=== PATIENT | female | born 1950 | race Caucasian/White ===

== ENCOUNTER → 2017-10-01 | Day surgery (SDC) | payer MEDICARE, BC ==
[2017-09-25 15:18] LABS: BASOPHILS # (AUTO) 0.1 (0.0-0.1); BASOPHILS % 0.4 % (0.0-1.0); EOSINOPHILS # (AUTO) 0.2 (0.0-0.4); EOSINOPHILS % 1.1 % (0.0-6.0); HEMATOCRIT 28.8 % (34.2-44.1); HEMOGLOBIN 9.1 g/dL (12.0-16.0); LYMPHOCYTES # (AUTO) 4.3 (1.0-3.2); LYMPHOCYTES % 24.9 % (18.0-39.1); MEAN CORPUSCULAR HGB CONC 31.6 g/dL (31-35); MEAN CORPUSCULAR VOLUME 91.7 fL (81-99); MONOCYTES # (AUTO) 1.6 (0.2-0.8); MONOCYTES % 9.5 % (4.4-11.3); NEUTROPHILS # (AUTO) 10.6 (2.1-6.9); NEUTROPHILS % 62.1 % (38.7-80.0); PLATELET COUNT 192 x10e3/uL (140-360); RED BLOOD COUNT 3.14 x10e6/uL (3.6-5.1)
[2017-09-25 16:49] LABS: HYPOCHROMASIA MODERATE; LYMPHOCYTES % (MANUAL) 12 % (19-48); MONOCYTES % (MANUAL) 9 % (3.4-9.0); NEUTROPHILS % (MANUAL) 78 % (40-74); NUCLEATED RED BLOOD CELLS 2; POIKILOCYTOSIS SLIGHT; RBC MORPHOLOGY COMMENT NORMAL
[2017-09-25 16:50] LABS: PLATELET ESTIMATE ADEQUATE; PLATELET MORPHOLOGY COMMENT MODERATE LARGE
[~2017-10-01] MED LIST: AGRYLIN0.5 M1 PO; AMLODIPINE BESYL5 MG PO; AMLODIPINE-BEN1 EAC1 PO; ARANESP; ASPIRIN81 MG PO; ATORVASTATIN CA10 MG PO; BENAZEPRIL HCL10 MG PO; BIOTIN PLUS-CA1 EACH PO; BIOTIN2500 MCG PO; BISOPROLOL-HCT1 EAC1 PO; BISOPROLOL-HCT1 EACH PO; CALCIUM 1,0001 EACH PO; CITRUCEL PO; CLONIDINE HCL0.2 MG PO; COQ-10100 MG PO; CRESTOR5 MG PO; EFFEXOR XR150 MG PO; FENTANYL CITRATE/PF 100MCG/2 ML INJ ONE; FERROUS SULFATE PO; FISH OIL 1,2001 EAC1 PO; LUTEIN10 MG PO; MIDAZOLAM HCL 2 MG/2 ML VIAL ONE; PROPOFOL IV EMULSION 10 MG/ML 50 ML VIAL ONE; SODIUM BICARB PO; SODIUM BICARBO650 MG PO; SYNTHROID100 MCG PO; VITAMIN C500 MG PO
--- OUTSIDE RECORDS SUMMARY | 2017-10-01 06:29 | XMS REPORT | Clinical Summary ---
Author Author KARTHIKEYAN [facility] Address Unknown Phone Unavailable Care Team Providers Care Manager Hospitality Name Role Phone PCP Unavailable Allergies Active Allergy Reactions Severity Noted Date Comments Sulfamethoxazole-Trimetho 10/12/2014 prim Codeine 10/12/2014 Dicyclomine 11/12/2014 Lidocaine 10/12/2014 Penicillins 10/12/2014 Current Medications Prescription Sig. Disp. Refills Start End Date Status Date darbepoetin Inject 300 mcg Active stalin-polysorbate subcutaneously once a (ARANESP) 100 mcg/0.5 mL week. Syrg injection anagrelide (AGRYLIN) 1 MG Take 1 mg by mouth 2 Active capsule (two) times daily. benazepril (LOTENSIN) 20 Take 5 mg by mouth daily Active MG tablet . amLODIPine (NORVASC) 5 MG Take 5 mg by mouth daily. Active tablet cloNIDine HCl (CATAPRES) Take 0.2 mg by mouth 2 Active 0.2 MG tablet (two) times daily. sodium bicarbonate 325 MG Take 650 mg by mouth 4 Active tablet (four) times daily. levothyroxine (SYNTHROID, Take 100 mcg by mouth Active LEVOTHROID) 100 MCG daily. tablet aspirin 81 MG EC tablet Take 81 mg by mouth Active daily. ascorbic acid (ASCORBIC Take 500 mg by mouth Active ACID WITH JOANNE HIPS) 500 daily. MG tablet calcium carbonate-vitamin Take 1 tablet by mouth 2 Active D3 (CALCIUM-VITAMIN D) (two) times daily with 500 mg(1,250mg) -200 unit breakfast and dinner. per tablet coenzyme Q10 100 mg Take 100 mg by mouth Active capsule daily. atorvastatin (LIPITOR) 10 Take 10 mg by mouth Active MG tablet daily. bisoprolol-hydroCHLOROthi Take 1 tablet by mouth Active azide (ZIAC) 5-6.25 mg daily. per tablet methylcellulose oral Take 2 g by mouth daily. Active powder pantoprazole (PROTONIX) Take 40 mg by mouth 08/31/19 Discontin 40 MG tablet daily. 18 ued rosuvastatin (CRESTOR) 5 Take 5 mg by mouth daily. 08/31/19 Discontin MG tablet 18 ued iron, carbonyl 45 mg Tab Take 65 mg by mouth 08/31/19 Discontin tablet daily. 18 ued omega-3 fatty Take by mouth. 08/31/19 Discontin acids-vitamin E 1,000 mg 18 ued Cap b complex vitamins tablet Take 1 tablet by mouth 08/31/19 Discontin daily. 18 ued Active Problems Not on file Encounters Date Type Specialty Care Team Description 08/30/2017 Evaluation Transplant Lakshmi Ordonez MD CKD ( chronic kidney Winnie Mejias MD disease) stage 4, GFR 15-29 ml/min (HCC) (Primary Dx) 08/30/2017 Hospital Cardiology Lakshmi Ordonez MD CKD (chronic kidney Encounter disease) stage 4, GFR 15-29 ml/min (HCC);Pre-transplant evaluation for chronic kidney disease;Renal dysplasia 07/10/2017 Documentation Transplant Cuong Germaina 07/10/2017 Orders Only Transplant Lesvia Rosario RN CKD (chronic kidney disease) stage 4, GFR 15-29 ml/min (HCC) (Primary Dx);Pre-transplant evaluation for chronic kidney disease;Renal dysplasia 05/01/2017 Orders Only Transplant Lesvia Rosario RN ESRD (end stage renal disease) (HCC) (Primary Dx);Patient awaiting renal transplant 01/12/2017 Documentation Nephrology Catalina Aceves MD after 09/30/2016 Social History Tobacco Use Types Packs/Day Years Used Date Never Smoker Alcohol Use Drinks/Week oz/Week Comments No Sex Assigned at Date Recorded Not on file Last Filed Vital Signs Vital Sign Reading Time Taken Blood Pressure 199/84 08/30/2017 1:14 PM CDT Pulse 78 08/30/2017 1:14 PM CDT Temperature 36.9 C (98.4 F) 08/30/2017 1:14 PM CDT Respiratory Rate 18 08/30/2017 1:14 PM CDT Oxygen Saturation - - Inhaled Oxygen - - Concentration Weight 54.2 kg (119 lb 8 oz) 08/30/2017 1:14 PM CDT Height 158 cm (5' 2.21") 08/30/2017 1:14 PM CDT Body Mass Index 21.71 08/30/2017 1:14 PM CDT Plan of Treatment Health Maintenance Due Date Last Done Comments INFLUENZA VACCINE 01/21/2018 Results * ECHOCARDIOGRAM REPORT - SCAN (08/30/2017 3:50 PM) * Flow PRA Class II (08/30/2017 11:02 AM) Component Value Ref Range Flow Class II Percent 0 Positive Flow Class Report Comments Specimen Performing Laboratory Blood [facility] [place], [place]: [id number], CLIA#[id number] CAP#[id number] [id number] [address] * Flow PRA Class I (08/30/2017 11:02 AM) Component Value Ref Range Flow Class I Percent 0 Positive Flow Class Report Comments Specimen Performing Laboratory Blood [facility] [place], [place]: [id number], CLIA#[id number] CAP#[id number] [id number] [address] * STRESS ECHO With Contrast & Tracing (08/30/2017 8:38 AM) Component Value Ref Range Ejection Fraction Specimen Performing Laboratory SLE ECHO [facility]ART[facility] MKCKESSON CPACS Narrative Stress Echocardiography Report Demographics Patient Name Ronni ADAMS of Study 08/30/2017 ED[place] [id number] Female Visit Number [id number] Unknown [id number] Room Number Number Date of Birth1950Referring Physician Mery Sow Age67 year(s)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 Clinical History HTN, Anemia, CKD Height: 62 inches Weight: 54.43 kg (120 lbs) BSA: 1.54 m^2 BMI: 21.95 kg/m^2 HR: 57 bpm BP: 190/55 mmHg Rest ECG Normal sinus rhythm. Standing HR:57 bpmStanding BP:190/55 mmHg Pre-Stress Physical Exam Baseline PE remarkable for normal JVP. Basline lung exam was normal ; cardiac auscultation remarkable for normal heart sounds . Stress Stress Type: Pharmacologic Peak HR: 139 bpmHR BP Product: [id number] Peak BP: 201/53 mmHgMax Infusion: 40 mcg/kg/min Predicted HR: 151 bpm % of predicted HR: 92 Test Duration: 4:25 min Reason for Termination: Target heart rate Stress Interpretation All segments contract normally at baseline and at all stages of stress. Results Global LVEF (rest): Normal (LVEF >50%) Global LVEF (stress): Hyperkinetic (LVEF >70%) ECG DIffuse 2mm ST depression at inferior and anterolateral leads. 2mm CRUZ at lead aVR Arrhythmias Rare isolated PVC Symptoms None Stress Protocol: Pharmacologic - Dobutamine +-----+-----+------+ +------+-----+--------+--+--------+----+------+ !Stage!Time !Dosage!Other !Dosage!Heart!Blood !CP!Pain!Pain! Pain! !#! !!Medication!!Rate !Pressure!! Location!Type!Action! +-----+-----+------+ +------+-----+--------+--+--------+----+------+ !1.0!03:38!10.00 !!!86 !201/53!! !!! +-----+-----+------+ +------+-----+--------+--+--------+----+------+ !2.0!03:19!20.00 !!!104!197/40!! !!! +-----+-----+------+ +------+-----+--------+--+--------+----+------+ !3.0!03:09!30.00 !!!113!188/39!! !!! +-----+-----+------+ +------+-----+--------+--+--------+----+------+ !4.0!04:25!40.00 !Atropine!0.25!139!191/43!! !!! +-----+-----+------+ +------+-----+--------+--+--------+----+------+ Summary Echocardiographic images obtained at peak stress demonstrate augmented contractility without development of new wall motion abnormalities. Stress ECG demonstrated diffuse ST changes during protocol which are likely false positive changes in setting of underlying resting hypertension (SBP 180s-190s). Negative echocardiographic study for inducible ischemia at peak stress. Signature Findings Rhythm/BPRegular sinus rhythm during the exam. Left Ventricle Normal left ventricular chamber size. Normal wall thickness. Normal overall left ventricular systolic function. No apparent segmental wall motion abnormalities. LVEF by Marlow's method of disk assessment is normal (>60%) . Grade 1 diastolic dysfunction ( impaired relaxation and low-normal LA pressure). Left AtriumLA size is mildly enlarged (35-41 ml/m2) . Right VentricleThe right ventricular chamber size and systolic function are within normal limits. Right Atrium RA size is normal. Aortic Valve Normal AoV structure and function. A trace of aortic regurgitation. Mitral Valve Mild MV leaflet thickening. Normal MV function. No evidence of mitral regurgitation. Tricuspid ValveNormal TV structure and function. No evidence of tricuspid regurgitation. Estimated peak systolic PA pressure is 20-25 mmHg . Pulmonic Valve Normal PV structure appears normal by available views. PericardiumNo significant pericardial effusion is visualized. IVC/SVC/PA/PV/PleuralThe inferior vena cava is adequately visualized. The estimated RA pressure by IVC dynamics 0-5mmHg . Chambers/Structures Left Atrium LA Volume: 61.37 ml LA Area: 19.28 cm^2 LA Vol. Index: 40 ml/m^2 Left Ventricle LVIDd: 4.13 cm LVIDs: 2.55 cm LV Septum Diastolic: 0.82 cm LV Septum Systolic: 1.41 cm LV FS: 38.3 % LV PW Diastolic: 0.9 cm LV PW Systolic: 1.14 cm LVEDVI: 53 ml/m ^2 LVEDV Marlow's:81.26 mlLVESVI: 17 ml/m ^2 LVESV Marlow's:25.78 ml LVEF Marlow's: 68.3 % LVOT Diameter: 2.02 cm Doppler/Quantitative Measurements Aortic Valve Peak Velocity: 1.36 m/sMean Velocity: 0.84 m/s Peak Gradient: 7.4 mmHgMean Gradient: 3.19 mmHg AV Area (continuity): 2.69 cm^2 AV VTI: 34.04 cm AV DVI: 0.84 LVOT Peak Velocity: 1.03 m/s Peak Gradient: 4.28 mmHg Mean Velocity: 0.64 m/s Mean Gradient: 1.95 mmHg LVOT Diameter: 2.02 cmLVOT VTI: 28.57 cm LVOT Area: 3.2 cm^2 LVOT SV:91.51 ml LVOT CO: 5.22 l/min LVOT CI: 3.39 l/min/m^2 Tricuspid Valve TR Velocity: 2.3 m/s TR Gradient: 21.07 mmHg Procedure Note Interface, External Ris In - 08/30/2017 3:03 PM CDT Stress Echocardiography Report Demographics Patient Name BEVERLEY ADAMS Date of Study 08/30/2017 [place] Gender Female Visit Number [id number] Race Unknown Room Number Number Date of 1950 Referring Physician Mery Sow Age 67 year(s) 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 Clinical History HTN, Anemia, CKD Height: 62 inches Weight: 54.43 kg (120 lbs) BSA: 1.54 m^2 BMI: 21.95 kg/m^2 HR: 57 bpm BP: 190/55 mmHg Rest ECG Normal sinus rhythm. Standing HR:57 bpmStanding BP:190/55 mmHg Pre-Stress Physical Exam Baseline PE remarkable for normal JVP. Basline lung exam was normal ; cardiac auscultation remarkable for normal heart sounds . Stress Stress Type: Pharmacologic Peak HR: 139 bpm HR BP Product: [id number] Peak BP: 201/53 mmHg Max Infusion: 40 mcg/kg/min Predicted HR: 151 bpm % of predicted HR: 92 Test Duration: 4:25 min Reason for Termination: Target heart rate Stress Interpretation All segments contract normally at baseline and at all stages of stress. Results Global LVEF (rest): Normal (LVEF >50%) Global LVEF (stress): Hyperkinetic (LVEF >70%) ECG DIffuse 2mm ST depression at inferior and anterolateral leads. 2mm CRUZ at lead aVR Arrhythmias Rare isolated PVC Symptoms None Stress Protocol: Pharmacologic - Dobutamine +-----+-----+------+ +------+-----+--------+--+--------+----+------+ !Stage!Time !Dosage!Other !Dosage!Heart!Blood !CP!Pain !Pain!Pain ! !# ! ! !Medication! !Rate !Pressure! !Location!Type!Action! +-----+-----+------+ +------+-----+--------+--+--------+----+------+ !1.0 !03:38!10.00 ! ! !86 !201/53 ! ! ! ! ! +-----+-----+------+ +------+-----+--------+--+--------+----+------+ !2.0 !03:19!20.00 ! ! !104 !197/40 ! ! ! ! ! +-----+-----+------+ +------+-----+--------+--+--------+----+------+ !3.0 !03:09!30.00 ! ! !113 !188/39 ! ! ! ! ! +-----+-----+------+ +------+-----+--------+--+--------+----+------+ !4.0 !04:25!40.00 !Atropine !0.25 !139 !191/43 ! ! ! ! ! +-----+-----+------+ +------+-----+--------+--+--------+----+------+ Summary Echocardiographic images obtained at peak stress demonstrate augmented contractility without development of new wall motion abnormalities. Stress ECG demonstrated diffuse ST changes during protocol which are likely false positive changes in setting of underlying resting hypertension (SBP 180s-190s). Negative echocardiographic study for inducible ischemia at peak stress. Signature Findings Rhythm/BP Regular sinus rhythm during the exam. Left Ventricle Normal left ventricular chamber size. Normal wall thickness. Normal overall left ventricular systolic function. No apparent segmental wall motion abnormalities. LVEF by Marlow's method of disk assessment is normal (>60%) . Grade 1 diastolic dysfunction (impaired relaxation and low-normal LA pressure). Left Atrium LA size is mildly enlarged (35-41 ml/m2) . Right Ventricle The right ventricular chamber size and systolic function are within normal limits. Right Atrium RA size is normal. Aortic Valve Normal AoV structure and function. A trace of aortic regurgitation. Mitral Valve Mild MV leaflet thickening. Normal MV function. No evidence of mitral regurgitation. Tricuspid Valve Normal TV structure and function. No evidence of tricuspid regurgitation. Estimated peak systolic PA pressure is 20-25 mmHg . Pulmonic Valve Normal PV structure appears normal by available views. Pericardium No significant pericardial effusion is visualized. IVC/SVC/PA/PV/Pleural The inferior vena cava is adequately visualized. The estimated RA pressure by IVC dynamics 0-5mmHg . Chambers/Structures Left Atrium LA Volume: 61.37 ml LA Area: 19.28 cm^2 LA Vol. Index: 40 ml/m^2 Left Ventricle LVIDd: 4.13 cm LVIDs: 2.55 cm LV Septum Diastolic: 0.82 cm LV Septum Systolic: 1.41 cm LV FS: 38.3 % LV PW Diastolic: 0.9 cm LV PW Systolic: 1.14 cm LVEDVI: 53 ml/m^2 LVEDV Marlow's:81.26 ml LVESVI: 17 ml/m^2 LVESV Marlow's:25.78 ml LVEF Marlow's: 68.3 % LVOT Diameter: 2.02 cm Doppler/Quantitative Measurements Aortic Valve Peak Velocity: 1.36 m/s Mean Velocity: 0.84 m/s Peak Gradient: 7.4 mmHg Mean Gradient: 3.19 mmHg AV Area (continuity): 2.69 cm^2 AV VTI: 34.04 cm AV DVI: 0.84 LVOT Peak Velocity: 1.03 m/s Peak Gradient: 4.28 mmHg Mean Velocity: 0.64 m/s Mean Gradient: 1.95 mmHg LVOT Diameter: 2.02 cm LVOT VTI: 28.57 cm LVOT Area: 3.2 cm^2 LVOT SV:91.51 ml LVOT CO: 5.22 l/min LVOT CI: 3.39 l/min/m^2 Tricuspid Valve TR Velocity: 2.3 m/s TR Gradient: 21.07 mmHg after 09/30/2016
--- NOTE | 2017-10-01 08:34 | Operative Report ---
DATE OF PROCEDURE: October 01, 2017 REFERRING PHYSICIAN: Dr. Sarath Oreilly PROCEDURE PERFORMED: Esophagogastroduodenoscopy with biopsies. INDICATIONS FOR EGD: Acid reflux and nausea. MEDICATION: Patient was done under MAC. Please see anesthesiologist's note. PROCEDURE: With the patient in the left lateral decubitus position, the flexible fiberoptic Olympus gastroscope was introduced into the esophagus under direct visualization without any difficulty. There was an approximately 4-mm ulcer noted in the distal esophagus. A Schatzki's ring that was friable was noted and that was biopsied. The scope was then advanced with ease into the stomach traversing a small sliding hiatal hernia. Mucosa overlying the antrum and the body revealed some patchy intense erythema and moderate edema, and biopsies were obtained and sent to stain for H. pylori. Pylorus was of normal contour and shape. It was intubated with ease. The scope was advanced all the way to the 2nd portion of the duodenum. The scope was then withdrawn slowly. Mucosa overlying the proximal 2nd portion and the duodenal bulb appeared to be within normal limits. The scope was then withdrawn back into the stomach and retroflexed. The mucosa overlying the fundus and the cardia appeared to be within normal limits. The scope was then straightened out. It was subsequently withdrawn. Patient tolerated the procedure well. IMPRESSION 1. Distal esophageal ulcer. 2. Schatzki's ring, friable, biopsied. 3. Small sliding hiatal hernia. 4. Gastritis, biopsied. Biopsies sent to stain for Helicobacter pylori. PLAN: Follow up histology. Initiate Protonix 40 mg 1 p.o. q.a.m. a.c. Job#: [id number] RI cc:SARATH OREILLY MD
== END | disposition home or self-care (01) ==
LOC: OR 06:26
PROVIDERS: ATTEND Internal Medicine Gastroenterology
DX: K29.50 Unspecified chronic gastritis without bleeding (principal); K22.2 Esophageal obstruction; K21.9 Gastro-esophageal reflux disease without esophagitis; K22.10 Ulcer of esophagus without bleeding; K44.9 Diaphragmatic hernia without obstruction or gangrene; E03.9 Hypothyroidism, unspecified; I12.9 Hypertensive chronic kidney disease with stage 1 through stage 4 chronic kidney disease, or unspecified chronic kidney disease; N18.4 Chronic kidney disease, stage 4 (severe); Z88.1 Allergy status to other antibiotic agents; Z88.5 Allergy status to narcotic agent; Z88.0 Allergy status to penicillin; Z88.8 Allergy status to other drugs, medicaments and biological substances; Z01.810 Encounter for preprocedural cardiovascular examination; Z01.812 Encounter for preprocedural laboratory examination; Z79.02 Long term (current) use of antithrombotics/antiplatelets; Z79.82 Long term (current) use of aspirin; Z86.2 Personal history of diseases of the blood and blood-forming organs and certain disorders involving the immune mechanism
CPT/HCPCS: 36415; 43239; 85025; 88305; 88312; 93005; J2250

== ENCOUNTER 2018-12-08 11:00 | Inpatient (IN) | payer MEDICARE, BC ==
[~2018-12-08] VITALS: Ht 157.5 cm; Wt 56.3 kg
[~2018-12-08 11:00] MED LIST changes: -FENTANYL CITRATE/PF 100MCG/2 ML INJ ONE; -MIDAZOLAM HCL 2 MG/2 ML VIAL ONE; -PROPOFOL IV EMULSION 10 MG/ML 50 ML VIAL ONE
--- OUTSIDE RECORDS SUMMARY | 2018-12-08 11:04 | XMS REPORT | Clinical Summary ---
Author Author [facility] [employer] [facility] [employer] Address Unknown Phone Unavailable Care Team Providers Care Animal Surgeon Name Role Phone Asked, No Pcp PCP Unavailable Allergies Comments Active Allergy Reactions Severity Noted Date Urinary retention Sulfamethoxazole-Trimetho Other (See 08/14/2018 prim Comments) Codeine GI 08/13/2018 Intolerance Dicyclomine 08/13/2018 Clammy Lidocaine Other (See 08/13/2018 Comments) Penicillins Hives 08/13/2018 Medications End Date Status Medication Sig Dispensed Refills Start Date Active darbepoetin Inject 300 0 stalin-polysorbate mcg under the (ARANESP, IN skin every 30 POLYSORBATE,) 300 mcg/0.6 (thirty) mL syringe days. As needed Active anagrelide (AGRYLIN) 1 MG Take 1 mg by 0 capsule mouth 2 (two) times a day. Active amLODIPine (NORVASC) 10 Take 10 mg by 0 mg tablet mouth daily. Active atorvastatin (LIPITOR) 20 Take 20 mg by 0 MG tablet mouth nightly. Default OP ins Active benazepril (LOTENSIN) 5 Take 5 mg by 0 MG tablet mouth daily. Active bisoprolol-hydrochlorothi Take 1 tablet 0 azide (ZIAC) 5-6.25 mg by mouth per tablet daily. Active clonIDINE HCl (CATAPRES) Take 0.2 mg 0 0.2 MG tablet by mouth as needed for high blood pressure. Active levothyroxine (SYNTHROID, Take 100 mcg 0 LEVOXYL) 100 mcg tablet by mouth daily. Active famotidine (PEPCID) 40 MG Take 40 mg by 0 tablet mouth nightly. Active aspirin (ASPIR-81 ORAL) Take by 0 mouth. Active ascorbic acid (VITAMIN C Take 500 mg 0 ORAL) by mouth 2 (two) times a day. Active calcium carbonate/vitamin Take by mouth 0 D3 (CALCIUM 600 + D,3, 2 (two) times ORAL) a day. Active COQ10, UBIQUINOL, ORAL Take 100 mg 0 by mouth daily. Active methylcellulose (CITRUCEL Take by mouth 0 ORAL) 2 (two) times a day. Active Problems Not on file Encounters Care Team Description Date Type Specialty Irma Purdy MD Jatzlau, Amybeth, APRN 08/14/2018 Anesthesia Plastic Surgery Event Diaz Devries MD VITRECTOMY, STRIPPING OF INTERNAL LIMITING MEMBRANE, ENDOLASER, GAS FLUID EXCHANGE - SF6 30% GAS INSERTED - LEFT EYE 08/14/2018 Surgery Plastic Surgery Diaz Devries MD 08/14/2018 Hospital Plastic Surgery Encounter after 12/07/2017 Social History Date Tobacco Use Types Packs/Day Years Used Never Smoker Smokeless Tobacco: Never Used Drinks/Week oz/Week Comments Alcohol Use No Alcohol Habits Answer Date Recorded How often do you have a drink containing alcohol? Never 08/13/2018 How many drinks containing alcohol do you have on Not asked a typical day when you are drinking? How often do you have six or more drinks on one Not asked occasion? Sex Assigned at Date Recorded Not on file Industry Job Start Date Occupation Not on file Not on file Not on file Travel End Travel History Travel Start No recent travel history available. Last Filed Vital Signs Reading Time Taken Comments Vital Sign 146/67 08/14/2018 11:11 AM CDT Blood Pressure 66 08/14/2018 11:11 AM CDT Pulse 36.6 C (97.9 F) 08/14/2018 11:11 AM CDT Temperature 16 08/14/2018 11:11 AM CDT Respiratory Rate 95% 08/14/2018 11:11 AM CDT Oxygen Saturation - - Inhaled Oxygen Concentration 53.3 kg (117 lb 9 oz) 08/14/2018 7:26 AM CDT Weight 157.5 cm (5' 2") 08/14/2018 7:26 AM CDT Height 21.5 08/14/2018 7:26 AM CDT Body Mass Index Plan of Treatment Care Team Description Date Type Specialty Aris Patel MD [address] [facility] [address] [place] [address] [id number] 01/07/2019 Office Visit Cardiovascular Procedures Comments Procedure Name Priority Date/Time Associated Diagnosis AL AN ELECTIVE Routine 08/14/2018 SUPRAGLOTTIC AIRWAY 9:48 AM CDT Procedure Note - Sukhi Browning CRNA - 08/14/2018 9:48 AM CDT Airway Performed by: Sukhi Browning CRNA Authorized by: Irma Purdy MD Location: OR Urgency: Elective Difficult Airway: No Anesthesio logist: Irma Purdy MD Resident/C RNA/AA: Sukhi Browning CRNA Performed by: resident/C RNA/AA Preoxygena mckay with 100% O2: Yes C-spine Precaution s Maintained Throughout : Yes Mask Ventilatio n: Easy mask Final Airway Type: Supraglott ic airway Final LMA: Classic LMA Size: 4 Number of Attempts at Approach: 1 VITRECTOMY 08/14/2018 Macular hole of left eye 9:33 AM CDT Special Needs 25 GAUGE NEEDLE POC PANEL 4 Routine 08/14/2018 9:31 AM CDT after 12/07/2017 Results * POC panel 4 (08/14/2018 9:31 AM CDT) POC sodium 142 135 - 148 mmol/L [facility] POC potassium 4.4 3.5 - 5.0 mmol/L [facility] POC hematocrit 18 (L) 37 - 47 % [facility] Comment: TAOIST Meter ID: [id number] HOSPITAL Chorus Dancer: Tyler Fregoso POC glucose 95 65 - 99 mg/dL [facility] Specimen Performing Organization Address City/State/Zipcode Phone Number [facility] OF [address] [place] [phone] PATHOLOGY AND GENOMIC MEDICINE [address] after 12/07/2017 Insurance Type Payer Benefit Subscriber ID Effective Phone Address Plan / Dates Group Medicare MEDICARE MEDICARE xxxxxxxxxxx 2013-P [place], PART A AND resent [place] B PPO BCBS BCBS xxxxxxxxxxxx 2015- CHOICE Present PPO/SARAH NUÑEZ PPO Advance Directives Patient Hospital Insurance Representative Explanation Type Date Recorded Advance Directives, Living Will and Medical Power of Sql Engineer
--- OUTSIDE RECORDS SUMMARY | 2018-12-08 11:04 | XMS REPORT | Clinical Summary ---
Author Author KARTHIKEYAN [facility] Address Unknown Phone Unavailable Care Team Providers Care Securities Attorney Name Role Phone Vladimir Oreilly MD PCP Allergies Comments Active Allergy Reactions Severity Noted Date Sulfamethoxazole-Trimetho 10/12/2014 prim Codeine 10/12/2014 Dicyclomine 11/12/2014 Lidocaine 10/12/2014 Penicillins 10/12/2014 Medications End Date Status Medication Sig Dispensed Refills Start Date Active darbepoetin Inject 300 0 stalin-polysorbate mcg (ARANESP) 100 mcg/0.5 mL subcutaneousl Syrg injection y once a week. Active anagrelide (AGRYLIN) 1 MG Take 1 mg by 0 capsule mouth 2 (two) times daily. Active benazepril (LOTENSIN) 20 Take 5 mg by 0 MG tablet mouth daily . Active amLODIPine (NORVASC) 5 MG Take 5 mg by 0 tablet mouth daily. Active cloNIDine HCl (CATAPRES) Take 0.2 mg 0 0.2 MG tablet by mouth 2 (two) times daily. Active sodium bicarbonate 325 MG Take 650 mg 0 tablet by mouth 4 (four) times daily. Active levothyroxine (SYNTHROID, Take 100 mcg 0 LEVOTHROID) 100 MCG by mouth tablet daily. Active aspirin 81 MG EC tablet Take 81 mg by 0 mouth daily. Active ascorbic acid (ASCORBIC Take 500 mg 0 ACID WITH JOANNE HIPS) 500 by mouth MG tablet daily. Active calcium carbonate-vitamin Take 1 tablet 0 D3 (CALCIUM-VITAMIN D) by mouth 2 500 mg(1,250mg) -200 unit (two) times per tablet daily with breakfast and dinner. Active coenzyme Q10 100 mg Take 100 mg 0 capsule by mouth daily. Active atorvastatin (LIPITOR) 10 Take 10 mg by 0 MG tablet mouth daily. Active bisoprolol-hydroCHLOROthi Take 1 tablet 0 azide (ZIAC) 5-6.25 mg by mouth per tablet daily. Active methylcellulose oral Take 2 g by 0 powder mouth daily. Active Problems Not on file Encounters Care Team Description Date Type Specialty RichardAnnachanelle 10/30/2018 Abstract Transplant Lesvia Rosario, RN 06/05/2018 Documentation Transplant Lesvia Rosario, RN Awaiting transplantation of kidney (Primary Dx) 04/29/2018 Orders Only Transplant after 12/07/2017 Social History Date Tobacco Use Types Packs/Day Years Used Never Smoker Alcohol Use Drinks/Week oz/Week Comments No Sex Assigned at Date Recorded Not on file Industry Job Start Date Occupation Not on file Not on file Not on file Travel End Travel History Travel Start No recent travel history available. Last Filed Vital Signs Not on file Plan of Treatment Not on file Results Not on fileafter 12/07/2017 Insurance Payer Benefit Subscriber ID Type Phone Address Plan / Group MEDICARE MEDICARE A xxxxxxxxxx Medicare B BLUE CROSS/BLUE SHIELD BCBS xxxxxxxxxxxx [facility] [phone] [id number] [place] [address] [place]
--- NOTE | 2018-12-08 11:47 | Diagnostic Imaging Report ---
History:Altered mental status, difficulty speaking Comparison studies: None Technique: Axial images were obtained from the skull base to the vertex. Coronal and sagittal images reconstructed from the axial data. Dose modulation, iterative reconstruction, and/or weight based adjustment of the mA/kV was utilized to reduce the radiation dose to as low as reasonably achievable. Intravenous contrast: None Findings: Scalp/skull: No abnormalities. Extra-axial spaces: No masses. No fluid collections. Brain sulci: Moderately prominent. Ventricles: Moderate compensatory dilatation. No hydrocephalus. Parenchyma: Subtle hypodensities in the supratentorial white matter are small vessel ischemic changes. No masses, hemorrhage, acute or chronic cortical vascular insults. Sellar/suprasellar region: No abnormalities. Craniocervical junction: Patent foramen magnum. No Chiari one malformation. Incidental findings: Subtle atherosclerotic calcifications in the carotid siphons . Impression: No acute abnormalities. Chronic findings: 1. Moderate generalized volume loss. 2. Mild supratentorial white matter small vessel ischemic changes. Signed by: Dr. Levy Castro M.D. on 12/08/2018 11:44 AM
[2018-12-08 12:29] LABS: BASOPHILS # (AUTO) 0.1 (0.0-0.1); BASOPHILS % 0.5 % (0.0-1.0); EOSINOPHILS # (AUTO) 0.2 (0.0-0.4); EOSINOPHILS % 0.6 % (0.0-6.0); HEMATOCRIT 34.5 % (34.2-44.1); HEMOGLOBIN 10.8 g/dL (12.0-16.0); LYMPHOCYTES # (AUTO) 5.4 (1.0-3.2); LYMPHOCYTES % 21.8 % (18.0-39.1); MEAN CORPUSCULAR HEMOGLOBIN 27.6 pg (28-32); MEAN CORPUSCULAR HGB CONC 31.3 g/dL (31-35); MEAN CORPUSCULAR VOLUME 88.2 fL (81-99); MONOCYTES % 8.1 % (4.4-11.3); NEUTROPHILS # (AUTO) 16.1 (2.1-6.9); PLATELET COUNT 118 x10e3/uL (140-360); RED BLOOD COUNT 3.91 x10e6/uL (3.6-5.1)
[2018-12-08 12:39] LABS: INR 1.13
[2018-12-08 12:40] LABS: PARTIAL THROMBOPLASTIN TIME 29.3 seconds (23.8-35.5)
[2018-12-08 12:47] LABS: ALANINE AMINOTRANSFERASE 13 IU/L (0-55); ALBUMIN 3.6 g/dL (3.5-5.0); ALBUMIN/GLOBULIN RATIO 1.4 (0.8-2.0); ALKALINE PHOSPHATASE 70 IU/L (40-150); ANION GAP 14.3 mmol/L (8-16); BLOOD UREA NITROGEN 57 mg/dL (7-26); BUN/CREATININE RATIO 17 (6-25); CALCIUM 9.7 mg/dL (8.4-10.2); CARBON DIOXIDE 23 mmol/L (22-29); CHLORIDE 107 mmol/L (98-107); CREATINE KINASE 37 IU/L (29-168); CREATININE, SERUM 3.29 mg/dL (0.57-1.11); EST GLOMERULAR FILTRATION RATE 14 ML/MIN (60-); GLUCOSE 136 mg/dL (74-118); MAGNESIUM 2.2 MG/DL (1.3-2.1); POTASSIUM 4.3 mmol/L (3.5-5.1); SODIUM 140 mmol/L (136-145)
[2018-12-08] MEDS ORDERED: HYDRALAZINE HCL 20 MG/ML VIAL IV STA ×2 (12:59)
--- NOTE | 2018-12-08 13:55 | Diagnostic Imaging Report ---
Examination: Single AP view of the chest. COMPARISON: Chest 2 views 09/29/2013 INDICATION: High blood pressure, AMS IMPRESSION: 1. Lines and Tubes: None 2. Lungs are grossly clear. No consolidation or effusion. 3. Mild prominence of the cardiac silhouette, likely due to portable AP projection. Pulmonary vasculature is normal. 4. No acute bony abnormalities. Signed by: Dr. Remy Neumann M.D. on 12/08/2018 1:52 PM
--- NOTE | 2018-12-08 14:28 | NUR ---
PT HAD TWO EPISODES OF EMESIS, NOTED TO BE DARK GREEN IN COLOR AND MALODOROUS; INFORMED DR. ANTOINE. PT PROVIDED WITH NEW GOWN AND SHEETS.
[2018-12-08] MEDS ORDERED: ONDANSETRON HCL INJ 2MG/ML 2ML 2 MG/ML VIAL IV PRN (14:30)
[2018-12-08] MEDS ORDERED: SODIUM CHLORIDE 0.9% 1000ML 1,000 ML IV SCH (14:30)
--- OUTSIDE RECORDS SUMMARY | 2018-12-08 14:34 | XMS REPORT | Clinical Summary ---
Author Author [facility] Address Unknown Phone Unavailable Care Team Providers Care Gamer Name Role Phone Vladimir Oreilly MD PCP [...] Medicare B BLUE CROSS/BLUE SHIELD BCBS xxxxxxxxxxxx [facility] [phone] [id number] [place] [address] [place]
--- OUTSIDE RECORDS SUMMARY | 2018-12-08 14:34 | XMS REPORT | Clinical Summary ---
Author Author [facility] Address Unknown Phone Unavailable Care Team Providers Care Renal Nurse Name Role Phone Asked, No Pcp PCP [...] Description Date Type Specialty Aris Patel MD [address] [facility] [address] [place] [address] [id number] 01/07/2019 Office Visit Cardiovascular Procedures Comments Procedure Name Priority Date/Time Associated Diagnosis [place] AN ELECTIVE Routine 08/14/2018 [place]WAY 9:48 [...] POC sodium 142 135 - 148 mmol/L [facility] POC potassium 4.4 3.5 - 5.0 mmol/L [facility] POC hematocrit 18 (L) 37 - 47 % [place] Comment: VOODOO Meter ID: [id number] HOSPITAL Skin Pass Operator: Tyler Fregoso POC glucose 95 65 - 99 mg/dL 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
--- OUTSIDE RECORDS SUMMARY | 2018-12-08 14:34 | XMS REPORT ---
Author [facility] Address Unknown Phone Unavailable Care Team Providers Care Ground Defence Officer Name Role Phone Ortiz ANTOINE Unavailable Unavailable Problems This patient has no known problems. Allergies, Adverse Reactions, Alerts This patient has no known allergies or adverse reactions. Medications This patient has no known medications. Results Test Description Test Time Test Comments Text Results Atomic Results Result Comments CHEST SINGLE (PORTABLE) 2018-12-08 13:51:00 [place] [address] Patient Name: KO ADAMS MR #: [id number] : 1950 Age/Sex: 68/F Req #: [id number] Adm Physician: Ordered by: CLAY ANTOINE MD Report #: [id number] Location: ER Room/Bed: Procedure: [id number] DX/CHEST SINGLE (PORTABLE) Exam Date: 12/08/18 Exam Time: 1250 REPORT STATUS: Signed Examination: Single AP view of the chest. COMPARI SON: Chest 2 views 09/29/2013 INDICATION: High blood pressure, AMS IMPRESSION: 1. Lines and Tubes: None 2. Lungs are grossly clear. No consolidation or effusion. 3. Mild prominence of the cardiac silhouette, likely due to portable AP projection. Pulmonary vasculature is normal. 4. No acute bony abnormalities. Signed by: Dr. Isa Neumann M.D. on 12/08/2018 1:52 PM Dictated By: ISA NEUMANN MD [id number] Transcribed By: NURIA on 12/08/18 1352 COPY TO: CLAY ANTOINE MD CT BRAIN WO 2018-12-08 11:43:00 [place] [address] Patient Name: KO ADAMS MR #: [id number] : 1950 Age/Sex: 68/F Req #: [id number] Adm Physician: Ordered by: ROXANNE RETANA NP Report #: [id number] Location: ER Room/Bed: Procedure: [id number] CT/CT BRAIN WO Exam Date: Exam Time: REPORT STATUS: Signed History:Altered mental status, difficulty speaking Comparison studies: None Technique: Axial images were obtained from the skull base to the vertex. Coronal and sagittal images reconstructed from the axial data. Dose modulation, iterative reconstruction, and/or weight based adjustment of the mA/kV was utilized to reduce the radiation dose to as low as reasonably achievable. Intravenous contrast: None Findings: Scalp/skull: No abnormalities. Extra-axial spaces: No masses. No fluid collections. Brain sulci: Moderately prominent. Ventricles: Moderate compensatory dilatation. No hydrocephalus. Parenchyma: Subtle hypodensities in the supratentorial white matter are small vessel ischemic changes. No masses, hemorrhage, acute or chronic cortical vascular insults. Sellar/suprasellar region: No abnormalities. Craniocervical junction: Patent foramen magnum. No Chiari one malformation. Incidental findings: Subtle atherosclerotic calcifications in the carotid siphons . Impression: No acute abnormalities. Chronic findings: 1. Moderate generalized volume loss. 2. Mild supratentorial white matter small vessel ischemic changes. Signed by: Dr. Levy Castro M.D. on 12/08/2018 11:44 AM Dictated By: LEVY CASTRO MD, MD 114 Transcribed By: NURIA on 12/08/18 1144 COPY TO: ROXANNE MARR NP
[2018-12-08] MEDS ORDERED: SODIUM CHLORIDE 0.9% 1000ML 1,000 ML ONE (14:45)
[2018-12-08 14:50] LABS: ACETAMINOPHEN < 3 ug/mL (10-30); SALICYLATE < 5.0 mg/dL (0-30)
[2018-12-08 14:51] LABS: AMPHETAMINES SCREEN,URINE NEGATIVE (NEGATIVE); BENZODIAZEPINES SCREEN,URINE NEGATIVE (NEGATIVE); PHENCYCLIDINE SCREEN,URINE NEGATIVE (NEGATIVE)
[2018-12-08 14:51] LABS: FREE THYROXINE INDEX 3.8711 (1.4-3.8); THYROID STIMULATING HORMONE 0.772 uIU/mL (0.350-4.940)
[2018-12-08 14:55] LABS: BILIRUBIN,URINE NEGATIVE (NEGATIVE); CLARITY,URINE CLEAR (CLEAR); COLOR,URINE YELLOW (YELLOW); KETONES,URINE NEGATIVE (NEGATIVE); LEUKOCYTE ESTERASE ,URINE NEGATIVE (NEGATIVE); NITRITE,URINE NEGATIVE (NEGATIVE); URINE UROBILINOGEN 0.2 mg/dL (0.2 - 1)
[2018-12-08 14:56] LABS: PROTEIN,URINE DIPSTICK 3+ (NEGATIVE)
[2018-12-08 15:27] LABS: BACTERIA,URINE FEW /HPF; EPITHELIAL CELLS,URINE FEW /LPF
--- NOTE | 2018-12-08 15:45 | NUR ---
Received pt from ER via stretcher; pt unable to converse well, mumbling unable to understand the pt. follows command fairly well but had to be physically put her in the bed. Pt appears to understand but cannot converse her thought. at bedside. TRIANA without difficulty, pupils are equal and reactive. BS are hypoactive; unaware of last BM. Bruises noted to lt buttocks(size of half dollar), bruise on rt thigh, also several bruises noted to rt FA and 1 small hematoma above the ac.
[2018-12-08 16:07] VITALS: BP 128/73
[2018-12-08] MEDS ORDERED: FAMOTIDINE20 MG PO (16:50)
[2018-12-08] MEDS ORDERED: HYDROCHLOROTHIA25 MG PO (16:50)
[2018-12-08] MEDS ORDERED: TERAZOSIN HCL5 MG PO (16:50)
[2018-12-08] MEDS ORDERED: CALCIUM CARBONATE PO SCH (17:00)
[2018-12-08] MEDS ORDERED: TRAMADOL HCL 50 MG TAB PO PRN (17:00)
[2018-12-08] MEDS ORDERED: ANAGRELIDE HCL 0.5 MG CAP PO SCH (17:00)
[2018-12-08] MEDS ORDERED: CLONIDINE HCL 0.2 MG TAB PO SCH (17:00)
[2018-12-08] MEDS ORDERED: NON-FORMULARY MEDICATION (Ascorbic Acid (Vitamin C) 500 MG) PO SCH (17:00)
[2018-12-08] MEDS ORDERED: BISOPROLOL/HCTZ 5/6.25MG TAB PO SCH (17:00)
[2018-12-08] MEDS ORDERED: VITAMIN D3 PO SCH (17:00)
[2018-12-08 18:48] VITALS: BP 128/73
[2018-12-08 20:00] VITALS: BP 198/87
[2018-12-08] MEDS ORDERED: ACETAMINOPHEN 325 MG TAB PO PRN (20:30)
[2018-12-08] MEDS: HYDROCHLOROTHIAZIDE 25 MG TAB PO SCH (20:45)
[2018-12-08] MEDS: BISOPROLOL FUMARATE 10 MG TAB PO SCH (20:45)
[2018-12-08] MEDS: ANAGRELIDE HCL 0.5 MG CAP PO SCH (20:45)
[2018-12-08] MEDS ORDERED: TERAZOSIN HCL 5 MG CAP PO SCH (21:00)
[2018-12-08] MEDS ORDERED: FAMOTIDINE 20 MG TAB PO SCH (21:00)
[2018-12-08] MEDS: PSYLLIUM 6GM PACKET PO SCH (23:00)
[2018-12-09] VITALS (8 sets, daily range): BP systolic 144–197; BP diastolic 65–98
[2018-12-09] MEDS: LEVOTHYROXINE SODIUM 100 MCG TAB PO SCH (06:00)
[2018-12-09 06:50] LABS: BASOPHILS # (AUTO) 0.1 (0.0-0.1); BASOPHILS % 0.5 % (0.0-1.0); EOSINOPHILS # (AUTO) 0.1 (0.0-0.4); EOSINOPHILS % 0.3 % (0.0-6.0); HEMATOCRIT 27.1 % (34.2-44.1); HEMOGLOBIN 8.3 g/dL (12.0-16.0); MEAN CORPUSCULAR HEMOGLOBIN 27.2 pg (28-32); MEAN CORPUSCULAR HGB CONC 30.6 g/dL (31-35); MEAN CORPUSCULAR VOLUME 88.9 fL (81-99); MONOCYTES # (AUTO) 2.5 (0.2-0.8); MONOCYTES % 11.8 % (4.4-11.3); NEUTROPHILS # (AUTO) 13.6 (2.1-6.9); NEUTROPHILS % 65.1 % (38.7-80.0); PLATELET COUNT 118 x10e3/uL (140-360); RED BLOOD COUNT 3.05 x10e6/uL (3.6-5.1); RED CELL DISTRIBUTION WIDTH 17.3 % (11.7-14.4)
--- NOTE | 2018-12-09 07:08 | NUR ---
RECEIVED PATIENT RESTING IN BED, RESPIRATIONS EVEN AND UNLABORED, NO ACUTE DISTRESS NOTED. AT BEDSIDE. CALL LIGHT WITHIN REACH. BED IN THE LOWEST POSITION.
[2018-12-09 07:10] LABS: ALBUMIN 2.7 g/dL (3.5-5.0); ALBUMIN/GLOBULIN RATIO 1.7 (0.8-2.0); ANION GAP 12.8 mmol/L (8-16); CALCIUM 8.3 mg/dL (8.4-10.2); CHOL/HDL RATIO 3.5 (3.0-3.6); CREATININE, SERUM 3.26 mg/dL (0.57-1.11); POTASSIUM 3.8 mmol/L (3.5-5.1)
[2018-12-09 07:13] LABS: CREATINE KINASE MB 1.9 ng/mL (0-5.0)
[2018-12-09 07:31] LABS: PHOSPHORUS 5.6 MG/DL (2.3-4.7)
[2018-12-09] MEDS: FAMOTIDINE 20 MG TAB PO SCH ×2 (08:45→16:21)
[2018-12-09] MEDS: (Ubidecarenone (Coq-10) 100 MG) PO SCH (08:55)
[2018-12-09] MEDS ORDERED: BENAZEPRIL HCL 10 MG TAB PO SCH (09:00)
[2018-12-09] MEDS ORDERED: ATORVASTATIN 10 MG TAB PO SCH (09:00)
[2018-12-09] MEDS ORDERED: ASPIRIN 81 MG ENTERIC COATED PO SCH (09:00)
[2018-12-09] MEDS ORDERED: HYDROCHLOROTHIAZIDE 25 MG TAB PO SCH (09:00)
[2018-12-09] MEDS: DOCUSATE SODIUM 100 MG CAP PO SCH ×2 (10:11→16:21)
[2018-12-09] MEDS: ANAGRELIDE HCL 0.5 MG CAP PO SCH ×2 (10:11→16:21)
[2018-12-09] MEDS: ASPIRIN 81 MG CHEW TAB PO SCH (10:11)
[2018-12-09] MEDS: ASCORBIC ACID 500 MG TAB PO SCH ×2 (10:11→16:21)
[2018-12-09] MEDS: HYDROCHLOROTHIAZIDE 25 MG TAB PO SCH ×2 (10:13→16:21)
[2018-12-09] MEDS: BISOPROLOL FUMARATE 10 MG TAB PO SCH ×2 (10:14→16:21)
[2018-12-09 10:21] LABS: EOSINOPHILS % (MANUAL) 1 % (0-7); LYMPHOCYTES % (MANUAL) 21 % (19-48); MONOCYTES % (MANUAL) 14 % (3.4-9.0); NEUTROPHILS % (MANUAL) 64 % (40-74)
[2018-12-09 10:33] LABS: TEAR DROP CELLS FEW
[2018-12-09 10:53] LABS: ANISOCYTOSIS SLIG; ELLIPTOCYTE, RBC SLIGHT; OVALOCYTES FEW; POIKILOCYTOSIS MODERATE; POLYCHROMASIA FEW
[2018-12-09 10:54] LABS: PLATELET ESTIMATE SLIGHTLY DECREASED
[2018-12-09 10:55] LABS: PLATELET MORPHOLOGY COMMENT FEW LARGE
[2018-12-09] MEDS: DEXTROSE 5%/0.45% SOD CHL 1,000 ML IV SCH ×2 (10:55→21:52)
[2018-12-09] MEDS: PSYLLIUM 6GM PACKET PO SCH ×2 (10:56→23:00)
[2018-12-09] MEDS ORDERED: LEVOFLOXACIN 750MG/D5W 150ML 150 ML IV SCH (11:00)
[2018-12-09] MEDS ORDERED: NIFEDIPINE CR 30 MG TAB PO SCH (11:00)
[2018-12-09] MEDS: LEVO IV SCH (11:20)
--- NOTE | 2018-12-09 11:24 | NUR ---
DR. PAM BOLTON ON PATIENT. NOTIFIED OF CREATININE KINASE LEVEL, NO NEW ORDERS RECEIVED.
--- NOTE | 2018-12-09 11:29 | NUR ---
EDUCATED ABOUT IMM, SIGNED, FILED IN CHART, WITH COPY LEFT WITH FAMILY AT BEDSIDE.
--- NOTE | 2018-12-09 11:32 | Consultation ---
DATE OF CONSULTATION: 12/09/2018 HISTORY OF PRESENT ILLNESS: A 68-year-old female, known to our Nephrology service, underlying history of nephrosclerosis, who has been admitted and renal has been consulted for management of kidney failure. She is currently awake, alert, lying supine, in no apparent distress, was mildly hypertensive earlier, just receiving her morning blood pressure medications. She denies any headache, fever, chills, chest pain, or shortness of breath. Her renal ultrasound and MRI of brain are pending. She denies any orthopnea or PND as well. ALLERGIES: PENICILLIN, CODEINE, DICYCLOMINE, LIDOCAINE, AND BACTRIM. CURRENT MEDICATIONS: The patient is on benazepril 5 mg p.o. daily, which I am going to stop. She is on normal saline at 50 mL an hour, Tylenol, Agrylin 1 mg p.o. b.i.d., vitamin C, aspirin 81 mg daily, clonidine 0.2 mg p.o. b.i.d., Pepcid 20 mg b.i.d., hydrochlorothiazide 25 mg daily. She is on (terazosin) Hytrin 10 mg at bedtime, tramadol p.r.n. She is also on darbepoetin stalin 300 mcg every 4 weeks. She also takes calcium carbonate and vitamin D3 from home and CoQ10 100 mg p.o. daily. LABORATORY DATA: Lab test shows white count 20.1, hemoglobin 8.3, platelets 118. Labs from today, sodium 136, potassium 3.8, bicarbonate 20, creatinine 3.26. PHYSICAL EXAMINATION: GENERAL: Awake, alert, sitting up in no apparent distress. VITAL SIGNS: Blood pressure 198/87, heart rate 84, afebrile, respiratory rate 18, oxygen saturation 95% on room air. HEAD AND NECK: Cornea clear. Oral mucosa moist. Neck veins are flat. LUNGS: Relatively clear. No rales or rhonchi. HEART: S1, S2 audible. ABDOMEN: Otherwise soft, nontender. No apparent visceromegaly. EXTREMITIES: Lower extremity examination shows no edema. IMPRESSION AND PLAN: Cvudu-gs-npehwzs kidney failure, unlike hypertension, relatively poorly controlled. No evidence of fluid overload, third spacing, or edema. Plan on stopping benazepril, hydrochlorothiazide, and some of her home vitamins. We will stop saline, start D5 half NS. Await kidney ultrasound results. We will obtain office records as well as awaiting renal workup. We will obtain a CK level as well. MD ALURE Brandon/ADITI /[id number]
[2018-12-09 11:54] LABS: MAGNESIUM 1.7 MG/DL (1.3-2.1)
--- NOTE | 2018-12-09 12:07 | Diagnostic Imaging Report ---
Renal ultrasound, 12/09/2018. History: Altered mental status. Discussion: Transverse and longitudinal images of the kidneys were obtained demonstrating normal renal sizes and increased parenchymal echogenicities. Oval anechoic structures are present bilaterally, 2 on the right and one on the left. The largest on the right measures 1.1 x 0.8 x 0.9 cm located in the upper pole. The second measures 0.6 cm located inferiorly. The cyst on the left measures 0.7 x 0.6 x 0.7 cm and is located in the interpolar region. There is no evidence of hydronephrosis, mass, or renal calculus. The right kidney measures 12.4 cm and the left kidney measures 11.8 cm in length. The urinary bladder is empty. There is no evidence of free fluid. IMPRESSION: Increased renal echogenicity consistent with medical renal disease. Bilateral simple renal cysts are also noted. No evidence of nephrolithiasis or hydronephrosis. Signed by: Donnie Oliva on 12/09/2018 12:04 PM
[2018-12-09] MEDS: CLONIDINE HCL 0.2 MG TAB PO SCH ×2 (15:11→21:47)
--- NOTE | 2018-12-09 18:17 | NUR ---
MRI CALLED TO NOTIFY NURSE THAT PATIENT CANNOT DO THE MRI BECAUSE THE NOISE OF THE MACHINE IS DRIVING HER CRAZY, CALLED DR. JAEGER TO ASK IF SHE CAN ORDER MEDICATION TO HELP PATIENT RELAX, NO ANSWER, LVM. WAITING MASK INSPECTOR BACK.
--- NOTE | 2018-12-09 19:26 | Diagnostic Imaging Report ---
MRI BRAIN WO HISTORY: Confused COMPARISON: Head CT 12/08/2018 TECHNIQUE: Incomplete MRI examination of the brain was performed without contrast. Multiplanar 3-D T1, axial diffusion, and axial T2/FLAIR weighted MR images were submitted. Motion artifacts obscure some details. DISCUSSION: Scalp/bone marrow: Unremarkable. Brain sulci: Mildly prominent. Ventricles: Mild to moderate supratentorial ventriculomegaly is slightly out of proportion to sulcal prominence. Extra-axial spaces: No masses or fluid collections. Parenchyma: Scattered T2/FLAIR hyperintense foci throughout the supratentorial white matter are likely chronic microvascular ischemic changes. Otherwise, no mass, hemorrhage, or acute vascular insults. Vessels: Normal flow voids in major arteries and veins. Sellar/Suprasellar region: No abnormalities. Craniocervical junction: No abnormalities. Incidental findings: There is a small right maxillary sinus retention cyst. Mild left maxillary sinus mucosal thickening is present as well. IMPRESSION: 1. Mild to moderate supratentorial ventriculomegaly is slightly out of proportion to sulcal prominence. Correlate for communicating hydrocephalus (i.e. normal pressure hydrocephalus). 2. Otherwise, no acute intracranial abnormalities. 3. Mild supratentorial chronic microvascular ischemic change. Signed by: Dr. Terry Villasenor M.D. on 12/09/2018 7:23 PM
--- NOTE | 2018-12-09 19:37 | NUR ---
REPORT GIVEN TO ONCOMING NURSE. WALKING ROUNDS DONE. PATIENT IS RESTING IN BED. NO ACUTE DISTRESS NOTED. AT BEDSIDE. CALL LIGHT WITHIN REACH. BED IN THE LOWEST POSITION.
--- NOTE | 2018-12-09 20:24 | NUR ---
RECEIVED PT IN BED AOX2 .DENIES PAIN .RESPIRATIONS ARE EVEN AND UNLABORED .CALL LIGHT WITH IN REACH .CONTINUE TO MONITOR
[2018-12-10 00:25] VITALS: BP 164/77
--- NOTE | 2018-12-10 02:00 | Consultation ---
DATE OF CONSULTATION: 12/09/2018 Neurology Consult Note HISTORY OF PRESENT ILLNESS: Ms. Mobley is a 68-year-old right-hand dominant woman with past medical history significant for hypertension, hyperlipidemia, and chronic kidney disease stage 4 to 5, admitted to [facility] on December 08, 2018, with symptoms suspicious for a stroke. Approximately mid morning on the day of admission, the patient and her noted difficulty speaking. This is further described as the patient not being able to say certain words she wished to say. Ms. Mobley does not report a visual field cut or other disturbance, dysarthria, receptive aphasia, facial droop, hemiparesis, hemihypesthesia, poor balance, gait impairment, or dizziness associated with her word-finding difficulty. When asked whether or not confusion was present, Ms. Mobley reports she "may have been a little confused." Her , who is at the bedside and witnessed the patient's symptoms, reports Ms. Mobley did seem confused as well as having some difficulty saying certain words. Ms. Mobley was brought to the emergency center of [facility] for further evaluation of her symptoms. Upon arrival in the emergency center, the patient was afebrile, with a blood pressure of 152/67 mmHg and a pulse of 58 beats per minute. However, during her stay in the emergency center, the patient's blood pressure was as high as 232/72 mmHg. Ms. Mobley's neurological examination was significant for disorientation to place and time. Expressive aphasia was noted as well. Otherwise, no other focal deficits were documented. While in the emergency center, the patient underwent a CT of the brain without contrast, which did not reveal evidence of recent large territorial ischemia or hemorrhage. Ms. Mobley was subsequently admitted to [facility] for further evaluation and treatment of her symptoms. Ms. Mobley does not report recent fevers, chills, shortness of breath, productive cough, nausea, vomiting, or diarrhea. The patient does report burning with urination, urinary frequency, and urgency. Ms. Mobley endorses compliance with aspirin 81 mg by mouth daily. REVIEW OF SYSTEMS: Burning with urination, urinary frequency, urinary urgency, possible confusion, possible expressive aphasia. Otherwise, a 12-point review of systems is negative. PAST MEDICAL HISTORY: Hypertension, hyperlipidemia, thyroid disease, nephrosclerosis with chronic kidney disease stage 4 to 5, prior history of breast cancer, in remission. PAST SURGICAL HISTORY: Exploratory laparotomy, cholecystectomy, removal of multiple ovarian cysts, total hysterectomy, left partial mastectomy, thyroid lobectomy. PAST HOSPITALIZATIONS: Surgeries/procedures as listed, childbirth x2. FAMILY MEDICAL HISTORY: Coronary artery disease with myocardial infarction. The patient's father is from mesothelioma. SOCIAL HISTORY: Ms. Mobley is . She is retired. The patient does not report current or prior tobacco, alcohol, or recreational drug use. HOME MEDICATIONS: Agrylin 1 mg by mouth twice daily, vitamin C 500 mg by mouth twice daily, aspirin 81 mg by mouth daily, atorvastatin 10 mg by mouth daily, benazepril 5 mg by mouth daily, bisoprolol/hydrochlorothiazide 5-6.25 mg one tablet by mouth twice daily, calcium with vitamin D3 one tablet by mouth twice daily, clonidine 0.2 mg by mouth twice daily, Aranesp 300 mcg every 4 weeks, Pepcid 40 mg by mouth at bedtime daily, hydrochlorothiazide 25 mg by mouth daily, levothyroxine 100 mcg by mouth daily, multivitamin one tablet by mouth daily, terazosin 10 mg by mouth at bedtime daily, coenzyme Q10 of 100 mg by mouth daily, Citrucel. HOSPITAL MEDICATIONS: Tylenol, Agrylin, vitamin C, aspirin, Lipitor, bisoprolol, clonidine, Colace, Pepcid, hydralazine, hydrochlorothiazide, levofloxacin, levothyroxine, nifedipine, Zofran, Metamucil, tramadol. ALLERGIES: PENICILLIN, CODEINE, DICYCLOMINE, LIDOCAINE, BACTRIM. NO KNOWN FOOD ALLERGIES. NO KNOWN ALLERGIES TO LATEX. NO KNOWN ALLERGIES TO IODINE OR OTHER CONTRAST MATERIALS. PHYSICAL EXAMINATION: VITAL SIGNS: Height 62 inches, weight 118 pounds, BMI 21.6 kg/m2. Blood pressure 160/70 mmHg, pulse 59 beats per minute, respiratory rate 18 breaths per minute, and oxygen saturation 95% on room air. GENERAL: The patient is awake and alert, does not appear distressed. HEENT: Normocephalic, atraumatic. Pupils are equal, round, and reactive to light. Moist mucous membranes. NECK: Supple. No appreciable thyromegaly. No appreciable carotid bruits. CARDIOVASCULAR: S1 and S2, regular rate and rhythm. No murmurs, rubs, or gallops. RESPIRATORY: Clear to auscultation bilaterally. No wheezes, rhonchi, or rales. EXTREMITIES: The skin is warm and dry. No clubbing, cyanosis, or edema. The posterior tibial and dorsalis pedis pulses are 2+ and symmetric. SKIN: No rashes or lesions. NEUROLOGIC: MEMORY/ATTENTION: The patient is awake and alert, oriented to person, place, time, and situation. CRANIAL NERVES: Cranial nerve I-not tested. Cranial nerve II, III, IV, and - pupils are equal and round, react briskly to light (from 4 mm to 2 mm). Extraocular movements intact. No nystagmus. Cranial nerve V-sensation to light touch and pinprick is intact in the bilateral V1 through V3 distributions. Strength in the temporalis and masseter muscles are within normal limits. Cranial nerve VII-the face is symmetric as are all facial movements. Strength is within normal limits. Cranial nerve VIII-hearing is intact to finger rub bilaterally. Cranial nerve IX, X-the soft palate elevates equally and symmetrically. Cranial nerve XI-normal strength of the bilateral sternocleidomastoid and trapezius muscles. Cranial nerve XII-the tongue protrudes midline and moves symmetrically from bfiu-zq-mavh. STRENGTH: Bulk is normal. Strength is 5/5 in the bilateral deltoids, biceps, triceps, wrist flexors and extensors, finger flexors and extensors, intrinsic hand muscles, hip flexors, knee flexors and extensors, ankle dorsiflexion and plantar flexion, and intrinsic foot muscles. Tone is normal. DTRS: Deep tendon reflexes are 2+ and symmetric at the triceps, biceps, brachioradialis, patellas, and Achilles. Plantar responses are flexor bilaterally. SENSATION: Sensation is intact to light touch and pinprick in both arms and both legs. CEREBELLAR: Kasdxn-orgl-uugkdl and heel-cuba movements are intact without dysmetria or other impairment. GAIT: Deferred. SPEECH: Spontaneous speech is normal without appreciable dysarthria or aphasia. Repetition is intact. INVOLUNTARY MOVEMENTS: None. PRONATOR DRIFT: None. LABORATORY DATA: The most recent comprehensive metabolic panel is significant for carbon dioxide of 20, BUN of 62, creatinine of 3.26, estimated GFR of 14, calcium of 8.3, total protein of 4.3, albumin of 2.7, globulin of 1.6. Phosphorus 5.6. Magnesium 1.7. B-natriuretic peptide 640.1. Lactic acid 12.5. Creatine kinase 37, 194, 225. CK-MB and troponin I are normal/negative. TSH 0.772, free T4 index 3.8711, thyroxine (T4) 11.01, T3 uptake 35.16. Lactic acid 12.5. Total cholesterol 87, triglycerides 94, LDL cholesterol 43, HDL cholesterol 25. Most recent CBC with differential and platelets reveals an elevated white blood cell count of 20.91 with a right shift with 65.1% neutrophils, 19.0% lymphocytes, 11.8% monocytes, 0.3% eosinophils, and 0.5% basophils. The hemoglobin and hematocrit are 8.3 and 27.1, respectively. The platelet count is 118. PT 15.0, INR 1.13, PTT 29.3. A urinalysis is significant for 3+ protein, 6 to 10 red blood cells, 11 to 20 white blood cells, and 1 to 5 fine granular casts. A urine drug screen is negative. Salicylates less than 5.0. Acetaminophen less than 3. Ethyl alcohol less than 10.0. A urine culture grew gram-negative bacillus. Blood culture reveals no growth in 24 hours, The second blood culture is pending. DIAGNOSTIC STUDIES: 1. Electrocardiogram on 12/08/2018: Normal sinus rhythm at 77 beats per minute. 2. CT of the brain without contrast on 12/08/2018: On my review, there is no evidence of recent or remote large territorial ischemia, hemorrhage, mass, or mass effect. There is diffuse cerebral atrophy with compensatory dilatation of the ventricles, more than expected for the patient's age. Their findings compatible with mild chronic small vessel ischemic disease. 3. Chest x-ray on 12/08/2018: Impression: a. Lines and tubes: None. b. Lungs are grossly clear. No consolidation or effusion. c. Mild prominence of the cardiac silhouette, likely due to portable AP projection. Pulmonary vasculature is normal. d. No acute bony abnormalities. 4. Echocardiogram on 12/09/2018: Ejection fraction 55 plus percent. Dqrnq-tn-sria aortic insufficiency. 5. Bilateral carotid artery ultrasound with Doppler on 12/09/2018: There is no atherosclerosis in either carotid artery system. Flow is antegrade in the bilateral vertebral arteries. 6. Renal ultrasound on 12/09/2018: Increased renal echogenicity consistent with medical renal disease. Bilateral simple renal cysts are also noted. No evidence of nephrolithiasis or hydronephrosis. 7. MRI of the brain without contrast on 12/08/2018: Ms. Mobley was unable to tolerate this examination. Therefore, the study was terminated prematurely. A neuroradiologist reviewed the few images obtained. His impression is as follows: a. Wemp-vg-mnzhwjde supratentorial ventriculomegaly is slightly out of proportion to sulcal prominence. Correlate for communicating hydrocephalus (i.e., normal- pressure hydrocephalus). b. Otherwise, no acute intracranial abnormalities. c. Mild supratentorial chronic microvascular ischemic change. ASSESSMENT AND PLAN: Ms. Mobley is a 68-year-old right-hand dominant woman with past medical history significant for hypertension and hyperlipidemia, admitted to [facility] with word finding difficulties/confusion, which has resolved. The patient's neurological examination is nonfocal. Her laboratory data and other diagnostic studies have been reviewed. Despite the moderate ventriculomegaly seen on the MRI of the brain without contrast, Ms. Mobley has no symptoms of normal-pressure hydrocephalus. In my opinion, the limited MRI examination of the brain cannot definitively exclude a diagnosis of ischemic stroke. However, Ms. Mobley's symptoms may not necessarily be due to a stroke. Word finding difficulties/confusion may be seen in a number of situations (i.e., infection, hypertensive emergency, yrvup-hs-zwrqfnq kidney failure, to name a few). Based on the history of present illness, Ms. Ugartes symptoms could be due to any of the aforementioned. This was discussed in detail with the patient as was the necessity for a completed MRI of the brain without contrast to definitively diagnose/exclude a stroke as the cause for her symptoms. Despite the importance of completing the MRI of the brain, Ms. Mobley declines to undergo further evaluation at the present time. As an ischemic stroke cannot be definitively diagnosed as the cause of the patient's symptoms, adjustments to the patient's current medications/treatments is not recommended. Thank you for this consultation. There are no recommendations from the Neurology Service at this time. Ms. Mobley may be discharged as per the primary service. TIME SPENT: 50 minutes. Reena Garsia MD CP/ADITI /[id number]
[2018-12-10] MEDS: DEXTROSE 5%/0.45% SOD CHL 1,000 ML IV SCH ×2 (02:30→09:42)
[2018-12-10 04:33] LABS: BASOPHILS # (AUTO) 0.1 (0.0-0.1); BASOPHILS % 0.5 % (0.0-1.0); EOSINOPHILS # (AUTO) 0.1 (0.0-0.4); EOSINOPHILS % 0.7 % (0.0-6.0); HEMOGLOBIN 8.5 g/dL (12.0-16.0); LYMPHOCYTES # (AUTO) 3.8 (1.0-3.2); MEAN CORPUSCULAR HEMOGLOBIN 28.1 pg (28-32); MEAN CORPUSCULAR HGB CONC 31.5 g/dL (31-35); MEAN CORPUSCULAR VOLUME 89.4 fL (81-99); MONOCYTES % 11.5 % (4.4-11.3); NEUTROPHILS # (AUTO) 10.7 (2.1-6.9); NEUTROPHILS % 61.3 % (38.7-80.0); PLATELET COUNT 108 x10e3/uL (140-360); RED BLOOD COUNT 3.02 x10e6/uL (3.6-5.1); RED CELL DISTRIBUTION WIDTH 17.2 % (11.7-14.4)
[2018-12-10 04:53] LABS: ALBUMIN 2.7 g/dL (3.5-5.0); ALBUMIN/GLOBULIN RATIO 1.6 (0.8-2.0); ANION GAP 11.7 mmol/L (8-16); CALCIUM 8.1 mg/dL (8.4-10.2); CREATININE, SERUM 3.17 mg/dL (0.57-1.11); POTASSIUM 3.7 mmol/L (3.5-5.1)
[2018-12-10 04:54] VITALS: BP 182/79
[2018-12-10 05:24] LABS: PHOSPHORUS 3.7 MG/DL (2.3-4.7)
[2018-12-10] MEDS: LEVOTHYROXINE SODIUM 100 MCG TAB PO SCH (06:00)
[2018-12-10] MEDS: HYDRALAZINE HCL 20 MG/ML VIAL IV PRN (06:18)
[2018-12-10] MEDS ORDERED: HYDRALAZINE HCL 20 MG/ML VIAL IV PRN (06:30)
[2018-12-10 06:46] LABS: EOSINOPHILS % (MANUAL) 1 % (0-7); LYMPHOCYTES % (MANUAL) 17 % (19-48); MONOCYTES % (MANUAL) 11 % (3.4-9.0); NEUTROPHILS % (MANUAL) 71 % (40-74)
[2018-12-10 06:49] LABS: RBC MORPHOLOGY COMMENT NORMAL
[2018-12-10 07:07] LABS: MAGNESIUM 1.6 MG/DL (1.3-2.1)
--- NOTE | 2018-12-10 07:23 | NUR ---
Morning rounds completed. Patient in bed, AOx2. Can identify person and place, does not know what year it is. Speech clear, non-slurred. No signs of distress. Ambulated to restroom with assistance. Call light placed within reach, non-skid socks applied, bed locked and in low position. Patient instructed to call for assistance when getting out of bed. Will continue to monitor.
--- NOTE | 2018-12-10 07:33 | NUR ---
PT RESTED DURING THE NIGHT .DENIES PAIN .REPORT GIVEN TO THE ONCOMING NURSE
[2018-12-10 08:35] VITALS: BP 170/72
[2018-12-10] MEDS: (Ubidecarenone (Coq-10) 100 MG) PO SCH (09:00)
[2018-12-10] MEDS ORDERED: NIFEDIPINE CR 30 MG TAB PO SCH (09:00)
[2018-12-10] MEDS: ANAGRELIDE HCL 0.5 MG CAP PO SCH ×2 (09:42→16:30)
[2018-12-10] MEDS: ASPIRIN 81 MG CHEW TAB PO SCH (09:42)
[2018-12-10] MEDS: FAMOTIDINE 20 MG TAB PO SCH ×2 (09:42→16:30)
[2018-12-10] MEDS: CLONIDINE HCL 0.2 MG TAB PO SCH ×3 (09:43→21:00)
[2018-12-10] MEDS: ASCORBIC ACID 500 MG TAB PO SCH ×2 (09:43→16:31)
[2018-12-10] MEDS: NIFEDIPINE CR 30 MG TAB PO SCH (09:43)
[2018-12-10] MEDS: DOCUSATE SODIUM 100 MG CAP PO SCH ×2 (09:43→16:31)
[2018-12-10] MEDS: HYDROCHLOROTHIAZIDE 25 MG TAB PO SCH (09:43)
[2018-12-10] MEDS: BISOPROLOL FUMARATE 10 MG TAB PO SCH ×2 (09:44→16:31)
[2018-12-10] MEDS: PSYLLIUM 6GM PACKET PO SCH ×2 (11:48→22:34)
[2018-12-10 12:30] VITALS: BP 138/65
[2018-12-10] MEDS: VENLAFAXINE HCL 75 MG CAPCR PO SCH (14:27)
[2018-12-10 17:05] VITALS: BP 149/67
--- NOTE | 2018-12-10 19:45 | NUR ---
RECEIVED PT IN BED AOX3 .NO ACUTE DISTRESS NOTED .DENIES PAIN .FAMILY AT THE BEDSIDE .CALL LIGHT WITH IN REACH .CONTINUE TO MONITOR
[2018-12-10 20:00] VITALS: BP 149/63
[2018-12-10] MEDS: ATORVASTATIN 10 MG TAB PO SCH (21:00)
[2018-12-10 21:12] LABS: CREATININE,URINE RANDOM 90.79 mg/dL (47-110)
[2018-12-10 21:32] LABS: TOTAL PROTEIN, URINE 310.9 mg/dL (1-14)
[2018-12-11] VITALS (9 sets, daily range): BP systolic 122–194; BP diastolic 59–97
[2018-12-11 03:41] LABS: BASOPHILS # (AUTO) 0.1 (0.0-0.1); BASOPHILS % 0.5 % (0.0-1.0); EOSINOPHILS # (AUTO) 0.2 (0.0-0.4); HEMATOCRIT 26.5 % (34.2-44.1); HEMOGLOBIN 8.2 g/dL (12.0-16.0); LYMPHOCYTES # (AUTO) 4.5 (1.0-3.2); LYMPHOCYTES % 22.3 % (18.0-39.1); MEAN CORPUSCULAR HEMOGLOBIN 27.8 pg (28-32); MEAN CORPUSCULAR HGB CONC 30.9 g/dL (31-35); MEAN CORPUSCULAR VOLUME 89.8 fL (81-99); NEUTROPHILS # (AUTO) 12.5 (2.1-6.9); PLATELET COUNT 107 x10e3/uL (140-360); RED BLOOD COUNT 2.95 x10e6/uL (3.6-5.1); RED CELL DISTRIBUTION WIDTH 17.1 % (11.7-14.4)
[2018-12-11 04:02] LABS: MAGNESIUM 1.5 MG/DL (1.3-2.1); PHOSPHORUS 3.8 MG/DL (2.3-4.7)
[2018-12-11 04:04] LABS: ALBUMIN 2.7 g/dL (3.5-5.0); ALBUMIN/GLOBULIN RATIO 1.6 (0.8-2.0); ANION GAP 12.6 mmol/L (8-16); CREATININE, SERUM 3.07 mg/dL (0.57-1.11); POTASSIUM 3.6 mmol/L (3.5-5.1)
[2018-12-11 06:16] LABS: LYMPHOCYTES % (MANUAL) 21 % (19-48); MONOCYTES % (MANUAL) 10 % (3.4-9.0); NEUTROPHILS % (MANUAL) 69 % (40-74)
[2018-12-11 06:17] LABS: PLATELET ESTIMATE SLIGHTLY DECREASED
[2018-12-11] MEDS: DEXTROSE 5%/0.45% SOD CHL 1,000 ML IV SCH (06:17)
[2018-12-11] MEDS: LEVOTHYROXINE SODIUM 100 MCG TAB PO SCH (06:17)
[2018-12-11 06:18] LABS: RBC MORPHOLOGY COMMENT NORMAL
--- NOTE | 2018-12-11 06:31 | NUR ---
PT RESTED DURING THE NIGHT .DENIES PAIN .CALL LIGHT WITH IN REACH .CONTINUE TO MONITOR
--- NOTE | 2018-12-11 07:12 | NUR ---
BEDSIDE REPORT GIVEN TO THE ONCOMING NURSE
[2018-12-11] MEDS: ASPIRIN 81 MG CHEW TAB PO SCH (09:17)
[2018-12-11] MEDS: FAMOTIDINE 20 MG TAB PO SCH ×2 (09:17→17:34)
[2018-12-11] MEDS: ANAGRELIDE HCL 0.5 MG CAP PO SCH ×2 (09:17→17:34)
[2018-12-11] MEDS: ASCORBIC ACID 500 MG TAB PO SCH ×2 (09:20→17:34)
[2018-12-11] MEDS: DOCUSATE SODIUM 100 MG CAP PO SCH ×2 (09:20→17:34)
[2018-12-11] MEDS: NIFEDIPINE CR 30 MG TAB PO SCH (09:20)
[2018-12-11] MEDS: VENLAFAXINE HCL 75 MG CAPCR PO SCH (09:20)
[2018-12-11] MEDS: CLONIDINE HCL 0.2 MG TAB PO SCH (09:20)
[2018-12-11] MEDS: BISOPROLOL FUMARATE 10 MG TAB PO SCH ×2 (09:21→17:35)
--- NOTE | 2018-12-11 11:29 | NUR ---
EDUCATED ABOUT IMM SIGNED FILED IN CHART AND LEFT COPY WITH PT BEDSIDE WITH CARD FOR ANY FURTHER QUESTIONS
[2018-12-11] MEDS: HYDRALAZINE HCL 20 MG/ML VIAL IV PRN ×2 (11:50→11:55)
[2018-12-11] MEDS: PSYLLIUM 6GM PACKET PO SCH ×2 (11:50→23:00)
[2018-12-11] MEDS: LEVO IV SCH (11:50)
--- NOTE | 2018-12-11 17:49 | NUR ---
PT RESTING ,DENIES PAIN,NO DISTRESS NTOED.
--- NOTE | 2018-12-11 19:48 | NUR ---
RECEIVED PT IN BED AOX3 .NO ACUTE DISTRESS NOTED .TELE SHOWS SB .CALL LIGHT WITH IN REACH .CONTINUE TO MONITOR
[2018-12-11] MEDS: ATORVASTATIN 10 MG TAB PO SCH (21:00)
[2018-12-11] MEDS ORDERED: CLONIDINE HCL 0.3 MG TAB PO SCH (21:00)
[2018-12-12] VITALS: BP 145/66
[2018-12-12 04:00] VITALS: BP 192/86
[2018-12-12 04:01] LABS: BASOPHILS # (AUTO) 0.1 (0.0-0.1); BASOPHILS % 0.5 % (0.0-1.0); EOSINOPHILS # (AUTO) 0.3 (0.0-0.4); EOSINOPHILS % 1.3 % (0.0-6.0); HEMATOCRIT 27.6 % (34.2-44.1); HEMOGLOBIN 8.6 g/dL (12.0-16.0); LYMPHOCYTES # (AUTO) 5.7 (1.0-3.2); LYMPHOCYTES % 25.4 % (18.0-39.1); MEAN CORPUSCULAR HEMOGLOBIN 27.6 pg (28-32); MEAN CORPUSCULAR HGB CONC 31.2 g/dL (31-35); MEAN CORPUSCULAR VOLUME 88.5 fL (81-99); NEUTROPHILS # (AUTO) 13.1 (2.1-6.9); NEUTROPHILS % 58.4 % (38.7-80.0); PLATELET COUNT 133 x10e3/uL (140-360); RED BLOOD COUNT 3.12 x10e6/uL (3.6-5.1)
[2018-12-12 04:19] LABS: ANION GAP 12.5 mmol/L (8-16); CALCIUM 8.4 mg/dL (8.4-10.2); CREATININE, SERUM 2.9 mg/dL (0.57-1.11); POTASSIUM 3.5 mmol/L (3.5-5.1)
[2018-12-12] MEDS: LEVOTHYROXINE SODIUM 100 MCG TAB PO SCH (06:10)
[2018-12-12] MEDS ORDERED: LEVAQUIN500 MG PO (06:23)
[2018-12-12] MEDS ORDERED: HYDRALAZINE HCL25 MG PO (06:23)
[2018-12-12] MEDS ORDERED: NIFEDIPINE ER30 M1 PO (06:23)
[2018-12-12] MEDS ORDERED: ZEBETA10 MG PO (06:23)
[2018-12-12] MEDS ORDERED: CATAPRES0.3 MG PO (06:23)
--- NOTE | 2018-12-12 07:17 | NUR ---
PT RESTED DURING THE NIGHT B/P HIGH AND GIVEN ORDERED PRN IV MEDS.BEDSIDE REPORT GIVEN TO THE ONCOMING NURSE
--- NOTE | 2018-12-12 07:30 | NUR ---
PT MANUAL BP TAKEN 175/82,
[2018-12-12 08:15] VITALS: BP 209/82
[2018-12-12 08:40] LABS: EOSINOPHILS % (MANUAL) 1 % (0-7); LYMPHOCYTES % (MANUAL) 22 % (19-48); MONOCYTES % (MANUAL) 8 % (3.4-9.0); NEUTROPHILS % (MANUAL) 69 % (40-74); RBC MORPHOLOGY COMMENT NORMAL
[2018-12-12 08:41] LABS: PLATELET ESTIMATE MODERATELY DECREASED
[2018-12-12] MEDS ORDERED: HYDRALAZINE HCL 25 MG TAB PO SCH (09:00)
[2018-12-12] MEDS ORDERED: NIFEDIPINE CR 30 MG TAB PO SCH (09:00)
--- NOTE | 2018-12-12 09:00 | NUR ---
PT DISCHARGED HOME IV DCD WITHOPUT REDNESS OR SWELLING,INSTRUCTIONS GIEN COPY ON CHART ,TRANSPORTED TO AUTO VIA W/C
--- NOTE | 2018-12-13 04:48 | Discharge Summary ---
DISCHARGE DIAGNOSES: 1. AMS with expressive aphasia. 2. Acute kidney injury on chronic kidney disease. 3. Nausea and vomiting. 4. Myeloproliferative disorder. 5. Acute hypermagnesemia. 6. Hypertension controlled. 7. Ambulatory dysfunction with recent falls. 8. Holosystolic murmur. DISCHARGE DIAGNOSES: 1. AMS with expressive aphasia. 2. Acute kidney injury on chronic kidney disease. 3. Nausea and vomiting. 4. Myeloproliferative disorder. 5. Acute hypermagnesemia. 6. Hypertension controlled. 7. Ambulatory dysfunction with recent falls. 8. Holosystolic murmur. 9. Rule out cerebrovascular accident. 10. Rule out transient ischemic attack. 11. Klebsiella urinary tract infection present on admission. HISTORY: Hypertension, hypothyroidism, hyperlipidemia, CKD 4, GERD, hiatal hernia, esophageal ulcer, gastritis, myeloproliferative disorder, white coat hypertension, and Schatzki's ring. SURGICAL HISTORY: Cholecystectomy. FAMILY HISTORY: Hypertension and hyperlipidemia. SOCIAL HISTORY: Occasional alcohol use. HOSPITAL COURSE: At 9:00 a.m., the patient ate breakfast with her about chcf through, she began acting strange, was irritable and speech became slurred. She also had more pronounced difficulty walking and mumbling. On admission, carotid Doppler was negative. Echo showed an EF of over 55%. EKG showed normal sinus rhythm. CT of the brain showed no acute abnormalities. Chest x-ray was negative. Renal ultrasound showed increased renal echogenicity consistent with medical renal disease. The patient's GFR on admission was 14 and at the time of discharge, GFR 16. The patient's urine culture came back positive for Klebsiella, so her antibiotics were changed to Levaquin. Neurology was consulted. Ms. Mobley declined MRI of the brain, so per Neurology recommendation, an ischemic stroke cannot be definitely diagnosed as the cause of the symptoms, but could also be due to the hypertensive emergency, acute on chronic renal failure or the UTI. The patient continued to improve during hospitalization. Per Nephrology recommendation, patient's terazosin, hydrochlorothiazide and benazepril were stopped. Her blood pressure medications were changed to nifedipine, hydralazine, clonidine, and bisoprolol. The patient will follow up with primary care in 1 to 2 weeks. The patient understands discharge instructions and agrees to plan. Vital signs stable, patient afebrile. Dictated by Melissa M Dada, APPLICATION INTERNSHIP MD BRIAN Walton/ADITI /[id number]
[2018-12-30] MEDS ORDERED: DARBEPOETIN ALFA IN POLYSORBAT SC SCH (09:00)
== END 2018-12-12 09:04 | disposition home or self-care (01) | DRG 683 ==
LOC: ER 11:00 → ERHOLD 14:24 → MED/SURG3 15:44
PROVIDERS: ADMIT Internal Medicine; ATTEND Internal Medicine
DX: N17.9 Acute kidney failure, unspecified (principal); N39.0 Urinary tract infection, site not specified; C94.6 Myelodysplastic disease, not elsewhere classified; R47.01 Aphasia; G45.9 Transient cerebral ischemic attack, unspecified; N18.4 Chronic kidney disease, stage 4 (severe); I12.9 Hypertensive chronic kidney disease with stage 1 through stage 4 chronic kidney disease, or unspecified chronic kidney disease; R01.1 Cardiac murmur, unspecified; E83.41 Hypermagnesemia; B96.1 Klebsiella pneumoniae [K. pneumoniae] as the cause of diseases classified elsewhere; R29.6 Repeated falls
CPT/HCPCS: 36415; 70450; 70551; 71045; 76770; 80048; 80053; 80061; 80307; 80320; 80329; 81001; 82550; 82553; 82570; 83605; 83735; 83880; 84100; 84156; 84436; 84443; 84479; 84484; 85025; 85610; 85730; 87040; 87086; 87186; 93005; 93306; 93880; 97139; 99285; J0360; J1956; J2405; J7030

== ENCOUNTER 2018-12-20 17:09 | Inpatient (IN) | payer MEDICARE, BC ==
[~2018-12-20] VITALS: Ht 157.5 cm; Wt 59.5 kg
[~2018-12-20 17:09] MED LIST changes: +CATAPRES0.3 MG PO; +FAMOTIDINE20 MG PO; +HYDRALAZINE HCL25 MG PO; +HYDROCHLOROTHIA25 MG PO; +LEVAQUIN500 MG PO; +NIFEDIPINE ER30 M1 PO; +TERAZOSIN HCL5 MG PO; +ZEBETA10 MG PO
--- OUTSIDE RECORDS SUMMARY | 2018-12-20 17:12 | XMS REPORT | Clinical Summary ---
Author Author KARTHIKEYAN [facility] Address Unknown Phone Unavailable Care Team Providers Care City Superintendent Of Schools Name Role Phone Vladimir Oreilly MD PCP [...] Encounters Care Team Description Date Type Specialty Lesvia Rosario RN Appointment 12/12/2018 Telephone Transplant RichardHughwagner 10/30/2018 Abstract Transplant Lesvia Rosario RN 06/05/2018 Documentation Transplant Lesvia Rosario RN Awaiting transplantation of kidney (Primary Dx) 04/29/2018 Orders Only Transplant after 12/19/2017 Social History Date Tobacco Use Types Packs/Day Years Used Never Smoker Alcohol Use Drinks/Week oz/Week Comments No Sex Assigned at Date Recorded Not on file Industry Job Start Date Occupation Not on file Not on file Not on file Travel End Travel History Travel Start No recent travel history available. Last Filed Vital Signs Not on file Plan of Treatment Care Team Description Date Type Specialty 01/16/2019 Evaluation Transplant Results Not on fileafter 12/19/2017 Insurance Payer Benefit Subscriber ID Type Phone Address Plan / Group MEDICARE MEDICARE A xxxxxxxxxx Medicare B BLUE CROSS/BLUE SHIELD BCBS xxxxxxxxxxxx [facility] [phone] [address] [place] [address] [place]
--- OUTSIDE RECORDS SUMMARY | 2018-12-20 17:12 | XMS REPORT | Clinical Summary ---
Author Author [facility] Address Unknown Phone Unavailable Care Team Providers Care Rotary Cutter Name Role Phone Asked, No Pcp PCP [...] MD 08/14/2018 Hospital Plastic Surgery Encounter after 12/19/2017 Social History Date Tobacco Use [...] Description Date Type Specialty Aris Patel MD [address] [facility] [address] [place] [address] [id number] 01/07/2019 Office Visit Cardiovascular Procedures Comments Procedure Name Priority Date/Time Associated Diagnosis WA AN ELECTIVE Routine 08/14/2018 SU[address] AIRWAY 9:48 [...] 4 Routine 08/14/2018 9:31 AM CDT after 12/19/2017 Results * POC panel 4 (08/14/2018 9:31 AM CDT) POC sodium 142 135 - 148 mmol/L [facility] POC potassium 4.4 3.5 - 5.0 mmol/L [facility] POC hematocrit 18 (L) 37 - 47 % [facility] Comment: RASTAFARIAN Meter ID: [id number] HOSPITAL Electronic News Gathering Camera Person: Tyler Fregoso POC glucose 95 65 - 99 mg/dL [facility] Specimen Performing Organization Address City/State/Zipcode Phone Number [facility] DEPARTMENT OF [address] [place] [id number] PATHOLOGY AND GENOMIC MEDICINE [address] after 12/19/2017 Insurance Type Payer Benefit Subscriber ID Effective Phone Address Plan / Dates Group Medicare MEDICARE MEDICARE xxxxxxxxxxx 2013-P CROSS, PART A AND resent [place] B PPO BCBS BCBS xxxxxxxxxxxx 2015- CHOICE Present PPO/SARAH NUÑEZ PPO Advance Directives For more information, please contact: [phone] 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
[2018-12-20] MEDS ORDERED: SODIUM CHLORIDE 0.9% 1000ML 1,000 ML IV STA (20:38)
[2018-12-20] MEDS ORDERED: ONDANSETRON HCL INJ 2MG/ML 2ML 2 MG/ML VIAL IV ONE (20:38)
[2018-12-20] MEDS ORDERED: MORPHINE SULFATE INJ 4 MG/ML INJ 1ML IV ONE (20:38)
[2018-12-20] MEDS ORDERED: DIATRIZOATE MEGL/DIATRIZOA SOD 30 ML BTL PO ONE (20:57)
[2018-12-20 22:09] LABS: BASOPHILS # (AUTO) 2.6 (0.0-0.1); BASOPHILS % 1.2 % (0.0-1.0); EOSINOPHILS # (AUTO) 0.4 (0.0-0.4); EOSINOPHILS % 0.2 % (0.0-6.0); HEMATOCRIT 43.9 % (34.2-44.1); HEMOGLOBIN 13.2 g/dL (12.0-16.0); LYMPHOCYTES % 23.4 % (18.0-39.1); MEAN CORPUSCULAR HEMOGLOBIN 27.9 pg (28-32); MEAN CORPUSCULAR HGB CONC 30.1 g/dL (31-35); MEAN CORPUSCULAR VOLUME 92.8 fL (81-99); MONOCYTES # (AUTO) 12.7 (0.2-0.8); MONOCYTES % 6.1 % (4.4-11.3); NEUTROPHILS # (AUTO) 134.7 (2.1-6.9); NEUTROPHILS % 64.3 % (38.7-80.0); PLATELET COUNT 487 x10e3/uL (140-360); RED BLOOD COUNT 4.73 x10e6/uL (3.6-5.1); RED CELL DISTRIBUTION WIDTH 18.7 % (11.7-14.4)
[2018-12-20 22:30] LABS: ALBUMIN 3.6 g/dL (3.5-5.0); ALBUMIN/GLOBULIN RATIO 1.5 (0.8-2.0); ANION GAP 27.4 mmol/L (8-16); CALCIUM 10.1 mg/dL (8.4-10.2); CREATININE, SERUM 4.25 mg/dL (0.57-1.11); POTASSIUM 4.4 mmol/L (3.5-5.1)
[2018-12-20 22:31] LABS: LYMPHOCYTES % (MANUAL) 10 % (19-48); MONOCYTES % (MANUAL) 5 % (3.4-9.0); NEUTROPHILS % (MANUAL) 80 % (40-74)
[2018-12-20 22:32] LABS: PLATELET ESTIMATE MODERATELY INCREASED; PLATELET MORPHOLOGY COMMENT NORMAL; RBC MORPHOLOGY COMMENT NORMAL
[2018-12-20 22:37] LABS: CREATINE KINASE MB 5.6 ng/mL (0-5.0)
[2018-12-20 22:48] LABS: BASOPHILS # (AUTO) 2.6 (0.0-0.1); BASOPHILS % 1.2 % (0.0-1.0); EOSINOPHILS # (AUTO) 0.3 (0.0-0.4); EOSINOPHILS % 0.1 % (0.0-6.0); HEMATOCRIT 44.4 % (34.2-44.1); HEMOGLOBIN 12.8 g/dL (12.0-16.0); LYMPHOCYTES # (AUTO) 53.4 (1.0-3.2); LYMPHOCYTES % 24.8 % (18.0-39.1); MEAN CORPUSCULAR HEMOGLOBIN 27.4 pg (28-32); MEAN CORPUSCULAR HGB CONC 28.8 g/dL (31-35); MEAN CORPUSCULAR VOLUME 95.1 fL (81-99); MONOCYTES # (AUTO) 9.1 (0.2-0.8); MONOCYTES % 4.2 % (4.4-11.3); NEUTROPHILS # (AUTO) 139.4 (2.1-6.9); NEUTROPHILS % 64.8 % (38.7-80.0); PLATELET COUNT 461 x10e3/uL (140-360); RED BLOOD COUNT 4.67 x10e6/uL (3.6-5.1); RED CELL DISTRIBUTION WIDTH 19.1 % (11.7-14.4)
[2018-12-20] MEDS ORDERED: CIPROFLOXACIN 400 MG/D5W 200ML 200 ML IV ONE (23:00)
[2018-12-20] MEDS ORDERED: METRONIDAZOLE 500MG/NS 100ML 100 ML IV ONE (23:00)
--- NOTE | 2018-12-20 23:50 | NUR ---
DR. RAMIREZ AT BEDSIDE EXPLAINING RISKS, BENEFITS, AND ALTERNATIVE TREATMENTS FOR CENTRAL LINE PLACEMENT DUE TO POOR VENOUS ACCESS AND NEED FOR IV ABX AT THIS TIME; OBTAINING WITNESS FOR INFORMED CONSENT AT THIS TIME.
--- NOTE | 2018-12-21 | NUR ---
CENTRAL LINE PLACED BY DR. RAMIREZ AT BEDSIDE USING STERILE TECHNIQUE, SITE IS C/D/I WITH DRESSING INTACT, PT TOLERATING WELL AT THIS TIME, LINE OKAY TO USE PER DR. RAMIREZ.
--- NOTE | 2018-12-21 00:01 | NUR ---
CENTRAL LINE TO RT FEMORAL.
--- NOTE | 2018-12-21 01:00 | NUR ---
Ke bartholomew in ED - 12/21/18 at 0502 by HIPOLITO CENTRAL LINE DRESSING SOILED. APPLIED NEW CENTRAL LINE DRESSING TO RT FEMORAL USING STERILE TECHNIQUE.
--- NOTE | 2018-12-21 01:43 | NUR ---
REPORT RECIEVED FROM JOSH
--- NOTE | 2018-12-21 02:00 | NUR ---
CENTRAL LINE DRESSING SOILED. APPLIED NEW CENTRAL LINE DRESSING TO RT FEMORAL USING STERILE TECHNIQUE.
--- NOTE | 2018-12-21 02:08 | Diagnostic Imaging Report ---
EXAMINATION: CT of the abdomen and pelvis without contrast. TECHNIQUE: Spiral CT images of the abdomen and pelvis were performed from the lung bases to the lesser trochanters. No intravenous contrast was given per referring physician request.. Coronal and sagittal reformatted images were obtained. COMPARISON: None. CLINICAL HISTORY:Abdominal pain, nausea, vomiting, constipation, suprapubic pain DISCUSSION: ABSENCE OF INTRAVENOUS CONTRAST DECREASES SENSITIVITY FOR DETECTION OF FOCAL LESIONS AND VASCULAR PATHOLOGY. ABDOMEN/PELVIS: LOWER THORAX: Subsegmental atelectasis in the dependent lower lobes as well as the lingula. Cardiomegaly with small pericardial effusion. HEPATOBILIARY:No focal hepatic lesion. Trace intrahepatic biliary ductal dilatation status post cholecystectomy. SPLEEN: Enlarged, measuring 14 cm in craniocaudal span. PANCREAS: No focal masses or ductal dilatation. ADRENALS: No adrenal nodules. KIDNEYS/URETERS: 1.47 m hyperdense lesion projects from the upper pole of the right kidney, shown to represent a hyperdense cyst on comparison ultrasound 12/09/2018. No additional focal renal lesions are identified. Mild nonspecific left perinephric stranding greater than right PELVIC ORGANS/BLADDER: Urinary bladder is incompletely distended but otherwise unremarkable. Uterus is not identified and has presumably been removed. PERITONEUM/RETROPERITONEUM: Trace perihepatic and right paracolic gutter, as well as deep pelvic ascites, average attenuation 10-20 Hounsfield units. No pneumoperitoneum. LYMPH NODES: No pelvic sidewall, retroperitoneal, or mesenteric lymphadenopathy. VESSELS: Limited evaluation without intravenous contrast. The abdominal aorta is nonaneurysmal. Atherosclerotic calcification. Right common femoral approach central venous catheter tip terminates within the external iliac vein. Small subcutaneous hematoma along the catheter tract. GI TRACT: The colon is diffusely distended, with wall thickening and adjacent inflammatory change most notably along the descending and sigmoid colon. 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 BONES AND SOFT TISSUES: No focal soft tissue abnormalities. No osseous destructive lesions. IMPRESSION: Findings compatible with infectious or inflammatory pancolitis. No karl perforation or drainable fluid collection. Small volume ascites presumably reactive. Right common femoral approach central venous catheter in position as described. 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 Nonspecific splenomegaly. Signed by: Dr. Abdoul Rubin M.D. on 12/21/2018 2:04 AM
[2018-12-21 02:40] LABS: BILIRUBIN,URINE MODERATE (NEGATIVE); CLARITY,URINE SL CLOUDY (CLEAR); KETONES,URINE TRACE (NEGATIVE); LEUKOCYTE ESTERASE ,URINE NEGATIVE (NEGATIVE); NITRITE,URINE NEGATIVE (NEGATIVE); URINE UROBILINOGEN 2 mg/dL (0.2 - 1)
[2018-12-21 02:43] LABS: PROTEIN,URINE DIPSTICK 3+ (NEGATIVE)
[2018-12-21 02:44] LABS: COLOR,URINE AMBER (YELLOW)
[2018-12-21] MEDS ORDERED: MORPHINE SULFATE INJ 4 MG/ML INJ 1ML IV PRN ×2 (02:45→18:30)
[2018-12-21] MEDS ORDERED: TETANUS/DIPHTHERIA TOX ADULT 0.5 ML SYR IM ONE (02:45)
[2018-12-21] MEDS ORDERED: ONDANSETRON HCL INJ 2MG/ML 2ML 2 MG/ML VIAL IV PRN ×2 (02:45→18:30)
[2018-12-21 02:48] LABS: INR 1.32
[2018-12-21 03:15] LABS: AMORPHOUS SEDIMENT,URINE MANY (FEW); BACTERIA,URINE MODERATE /HPF; EPITHELIAL CELLS,URINE MODERATE /LPF
[2018-12-21] MEDS ORDERED: SODIUM CHLORIDE 0.9% 1000ML 1,000 ML IV STA ×2 (03:19→04:17)
--- OUTSIDE RECORDS SUMMARY | 2018-12-21 03:32 | XMS REPORT | Clinical Summary ---
Author Author [facility]AN [facility] Address Unknown Phone Unavailable Care Team Providers Care Development Technologist Name Role Phone Vladimir Oreilly MD PCP [...] (Primary Dx) 04/29/2018 Orders Only Transplant after 12/20/2017 Social History Date Tobacco Use Types Packs/Day [...] 01/16/2019 Evaluation Transplant Results Not on fileafter 12/20/2017 Insurance Payer Benefit Subscriber ID Type Phone Address Plan / Group MEDICARE MEDICARE A xxxxxxxxxx Medicare B BLUE CROSS/BLUE SHIELD BCBS xxxxxxxxxxxx [facility] [phone] [address] [place] [address] [place]
--- OUTSIDE RECORDS SUMMARY | 2018-12-21 03:32 | XMS REPORT | Clinical Summary ---
Author Author [facility] Organization [facility] Address Unknown Phone Unavailable Care Team Providers Care Tunnel Man Name Role Phone Asked, No Pcp PCP [...] - LEFT EYE 08/14/2018 Surgery Plastic Surgery Diza Devries MD 08/14/2018 Hospital Plastic Surgery Encounter after 12/20/2017 Social History Date Tobacco Use [...] Description Date Type Specialty Aris Patel MD [address] [facility] [address] [place] [address] [phone] 01/07/2019 Office Visit Cardiovascular Procedures Comments Procedure Name Priority Date/Time Associated Diagnosis TN AN ELECTIVE Routine 08/14/2018 SUPRAGLOTTIC AIRWAY 9:48 [...] 4 Routine 08/14/2018 9:31 AM CDT after 12/20/2017 Results * POC panel 4 (08/14/2018 9:31 AM CDT) POC sodium 142 135 - 148 mmol/L [facility] POC potassium 4.4 3.5 - 5.0 mmol/L [facility] POC hematocrit 18 (L) 37 - 47 % [facility] Comment: [facility]THOD[facility] Meter ID: [id number] [facility] Grain Elevator Operator: Tyler Fregoso POC glucose 95 65 - 99 mg/dL [facility] Specimen Performing Organization Address City/State/Zipcode Phone Number [facility] DEPARTMENT OF [address] [place] [id number] PATHOLOGY AND GENOMIC MEDICINE [address] after 12/20/2017 Insurance Type Payer Benefit Subscriber ID Effective Phone Address Plan / Dates Group Medicare MEDICARE MEDICARE xxxxxxxxxxx 2013-P BHAGAT, PART A AND resent [place] B PPO BCBS BCBS xxxxxxxxxxxx 2015- CHOICE Present PPO/SARAH NUÑEZ PPO Advance Directives For more information, please contact: [phone] Patient 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
[2018-12-21 05:05] LABS: ABG PCO2 31 mmHg (41-51); ABG PH 7.18 (7.31-7.41)
[2018-12-21 05:06] LABS: BASOPHILS # (AUTO) 0.8 (0.0-0.1); BASOPHILS % 0.6 % (0.0-1.0); EOSINOPHILS # (AUTO) 0.1 (0.0-0.4); EOSINOPHILS % 0.1 % (0.0-6.0); HEMATOCRIT 31.3 % (34.2-44.1); HEMOGLOBIN 9.5 g/dL (12.0-16.0); LYMPHOCYTES # (AUTO) 15.9 (1.0-3.2); LYMPHOCYTES % 12.6 % (18.0-39.1); MEAN CORPUSCULAR HEMOGLOBIN 27.6 pg (28-32); MEAN CORPUSCULAR HGB CONC 30.4 g/dL (31-35); MONOCYTES # (AUTO) 7.2 (0.2-0.8); MONOCYTES % 5.7 % (4.4-11.3); NEUTROPHILS # (AUTO) 96.4 (2.1-6.9); NEUTROPHILS % 76.2 % (38.7-80.0); RED BLOOD COUNT 3.44 x10e6/uL (3.6-5.1); RED CELL DISTRIBUTION WIDTH 18.1 % (11.7-14.4)
[2018-12-21 05:06] LABS: ABG HCO3 12 mmol/L (23-28); ABG PO2 70 mmHg (80-105)
[2018-12-21 05:26] LABS: ALBUMIN 2.4 g/dL (3.5-5.0); ALBUMIN/GLOBULIN RATIO 1.6 (0.8-2.0); ANION GAP 21.1 mmol/L (8-16); CALCIUM 7.9 mg/dL (8.4-10.2); CREATININE, SERUM 3.92 mg/dL (0.57-1.11); POTASSIUM 4.1 mmol/L (3.5-5.1)
--- NOTE | 2018-12-21 05:28 | NUR ---
DR. RAMIREZ AND GIANNA, RN NOTIFIED OF CRITICAL LAB VALUE; LACTIC ACID 51.6.
[2018-12-21 05:40] LABS: PLATELET COUNT 314 x10e3/uL (140-360)
[2018-12-21] MEDS ORDERED: ACETAMINOPHEN 1000 MG/100 ML 0 ML IV ONE (05:41)
[2018-12-21] MEDS ORDERED: ACETAMINOPHEN 325 MG TAB ONE (05:46)
[2018-12-21] MEDS: SODIUM CHLORIDE 0.9% 1000ML 1,000 ML IV SCH ×2 (05:54→10:00)
[2018-12-21] MEDS ORDERED: ACETAMINOPHEN 325 MG TAB PO PRN ×2 (06:00→07:30)
--- NOTE | 2018-12-21 07:00 | NUR ---
BEDSIDE REPORT FROM AMARI Crawley
--- NOTE | 2018-12-21 07:05 | NUR ---
PER GIANNA Crawley, DR. JEFFERY (CONSULT) WAS CALLED
--- NOTE | 2018-12-21 07:15 | NUR ---
PATIENT HAD MEDIUM SIZE LIQUID STOOL. PATIENT CLEANED, CHANGED PAD. SKIN INTACT
[2018-12-21 07:28] LABS: BAND NEUTROPHILS % (MANUAL) 3 %; LYMPHOCYTES % (MANUAL) 10 % (19-48); METAMYELOCYTES % (MANUAL) 1 % (0-0); MONOCYTES % (MANUAL) 2 % (3.4-9.0); NEUTROPHILS % (MANUAL) 80 % (40-74)
[2018-12-21 07:29] LABS: ACANTHOCYTES MODERATE
[2018-12-21 07:30] LABS: ANISOCYTOSIS MODERATE; ELLIPTOCYTE, RBC MODERATE; POIKILOCYTOSIS MODERATE; POLYCHROMASIA FEW
[2018-12-21] MEDS ORDERED: HYDRALAZINE HCL 20 MG/ML VIAL IV PRN (07:30)
[2018-12-21 07:31] LABS: PLATELET ESTIMATE ADEQUATE; PLATELET MORPHOLOGY COMMENT MODERATE LARGE
[2018-12-21 07:33] LABS: SCHISTOCYTES FEW
[2018-12-21 07:35] LABS: SMUDGE CELLS FEW
[2018-12-21 07:36] LABS: RBC MORPHOLOGY COMMENT ABNORMAL
[2018-12-21] MEDS: METRONIDAZOLE 500MG/NS 100ML 100 ML IV SCH ×3 (07:40→19:16)
--- NOTE | 2018-12-21 07:40 | NUR ---
DR. ALFREDO DELGADO) AT BEDSIDE EVALUATING PATIENT. SHE IS AWARE OF ELEVATED BNP, LACTIC, WBC AND QUESTION REGARDING ANY MAINTANENCE FLUIDS. SHE IS ORDERING CONSULTS FOR JUWAN AND ANSHUL AND WOULD LIKE LARA TO ADDRESS FLUIDS STATUS Addendum: 12/21/18 at [address] ALFREDO Hogan (LATIA ALMENDAREZ) AT BEDSIDE EVALUATING PATIENT. SHE IS AWARE OF ELEVATED BNP, LACTIC, WBC AND QUESTION REGARDING ANY MAINTANENCE FLUIDS. SHE IS ORDERING CONSULTS FOR QUARISAI AND ANSHUL AND WOULD LIKE LARA TO ADDRESS FLUIDS STATUS
[2018-12-21 07:41] LABS: BLAST CELLS % MANUAL 2
--- NOTE | 2018-12-21 07:44 | NUR ---
NOTIFIED DR SANTIAGO, LAB CALLED TO NOTIFY BLAST CELLS PRESENT IN BLOODWORK AND WILL SEND TO PATHOLOGY.
[2018-12-21] MEDS ORDERED: AMLODIPINE BESYL5 MG PO (08:57)
[2018-12-21] MEDS ORDERED: VENLAFAXINE HCL75 MG PO (08:59)
[2018-12-21] MEDS ORDERED: ATORVASTATIN 10 MG TAB PO SCH (09:00)
[2018-12-21] MEDS ORDERED: ENOXAPARIN SOD INJ 60 MG/0.6 ML SYR SC SCH (09:00)
[2018-12-21] MEDS: LEVOTHYROXINE SODIUM 100 MCG TAB PO SCH (09:30)
[2018-12-21] MEDS: NIFEDIPINE CR 30 MG TAB PO SCH (09:30)
[2018-12-21] MEDS: HYDRALAZINE HCL 25 MG TAB PO SCH ×2 (09:30→20:48)
[2018-12-21] MEDS: BISOPROLOL FUMARATE 10 MG TAB PO SCH ×2 (09:30→17:00)
[2018-12-21] MEDS: CLONIDINE HCL 0.3 MG TAB PO SCH ×3 (09:30→20:49)
[2018-12-21] MEDS ORDERED: CLONIDINE HCL 0.1 MG TAB ONE (09:32)
--- NOTE | 2018-12-21 09:50 | NUR ---
PATIENT INCONTINENT OF LIQUID STOOL. SATURATED INTO PAD. UNABLE TO OBTAIN SAMPLE.
--- NOTE | 2018-12-21 10:58 | NUR ---
REMAINS AT BEDSIDE. BOTH CONTINUALLY UPDATED ON PLAN OF CARE AND DOCTORS THAT HAVE BEEN CONSULTED FOR HIS .
--- NOTE | 2018-12-21 12:16 | NUR ---
DR. MILLIGAN AT BEDSIDE EVALUATING PATIENT AND UPDATING FAMILY ON PLAN OF CARE. HE WANTS TO CONTINUE IV FLUIDS AND WILL ORDER UPDATED LABS
--- NOTE | 2018-12-21 12:48 | NUR ---
LAB NOTIFIED TO DRAW BLOOD WORK
--- NOTE | 2018-12-21 13:29 | NUR ---
LAB WORK DRAWN. DR. Harmeet DODD AT BEDSIDE EVALUATING PATIENT
[2018-12-21 14:04] LABS: ANION GAP 20.6 mmol/L (8-16); CALCIUM 7.1 mg/dL (8.4-10.2); CREATININE, SERUM 3.84 mg/dL (0.57-1.11); POTASSIUM 4.6 mmol/L (3.5-5.1)
[2018-12-21] MEDS: CEFEPIME 2 GM/NS 0.9% 100 ML 100 ML IV SCH (15:00)
[2018-12-21] MEDS ORDERED: CIPROFLOXACIN 400 MG/D5W 200ML 200 ML IV SCH (15:00)
[2018-12-21] MEDS ORDERED: VANCOMYCIN 1GM/NS 250 ML 250 ML IV ONE (15:00)
[2018-12-21 15:15] VITALS: BP 140/44
[2018-12-21 15:43] LABS: BASOPHILS # (AUTO) 0.7 (0.0-0.1); BASOPHILS % 0.6 % (0.0-1.0); HEMATOCRIT 31.4 % (34.2-44.1); HEMOGLOBIN 9.7 g/dL (12.0-16.0); LYMPHOCYTES # (AUTO) 8.1 (1.0-3.2); LYMPHOCYTES % 6.5 % (18.0-39.1); MEAN CORPUSCULAR HEMOGLOBIN 27.7 pg (28-32); MEAN CORPUSCULAR HGB CONC 30.9 g/dL (31-35); MEAN CORPUSCULAR VOLUME 89.7 fL (81-99); MONOCYTES # (AUTO) 6.2 (0.2-0.8); NEUTROPHILS # (AUTO) 103.4 (2.1-6.9); NEUTROPHILS % 82.7 % (38.7-80.0); PLATELET COUNT 330 x10e3/uL (140-360); RED CELL DISTRIBUTION WIDTH 19.3 % (11.7-14.4)
[2018-12-21 17:10] LABS: B-TYPE NATRIURETIC PEPTIDE2 1742.2 pg/mL (0-100)
[2018-12-21] MEDS ORDERED: LIDOCAINE HCL 2% LOCAL INJ 5 ML SDV VIAL INJ ONE (17:23)
[2018-12-21] MEDS ORDERED: PROPOFOL IV EMULSION 10 MG/ML 20 ML VIAL ONE (17:23)
[2018-12-21] MEDS ORDERED: SEVOFLURANE INHAL SOLN 250 ML PEN BTL ONE (17:23)
[2018-12-21] MEDS ORDERED: PHENYLEPHRINE HCL 1% 10 MG/ML VIAL ONE (17:23)
[2018-12-21] MEDS ORDERED: DEXAMETHASONE SOD PHOS INJ 4 MG/ML VIAL ONE (17:23)
[2018-12-21] MEDS ORDERED: MIDAZOLAM HCL 2 MG/2 ML VIAL ONE (18:18)
[2018-12-21] MEDS ORDERED: FENTANYL CITRATE/PF 100MCG/2 ML INJ ONE (18:18)
--- NOTE | 2018-12-21 18:39 | Consultation ---
DATE OF CONSULTATION: 12/21/2018 Pulmonary Critical Care consultation. CHIEF COMPLAINT: Altered mental status and abdominal pain. CONSULTING PHYSICIAN: Terry Hartely MD HISTORY OF PRESENT ILLNESS: The patient is a 68-year-old woman. She has a history of myeloproliferative disorder along with chronic renal insufficiency. She was recently hospitalized at [facility] for altered mental status, nausea and vomiting, and the urinary tract infection. She now returns with abdominal pain, nausea and vomiting, and worsening disorientation. She does not complain of fever. When she arrived in the Emergency Department, she was found to have a white blood cell count of 200 along with worsening renal insufficiency and acidosis. She had a CT scan of the abdomen and pelvis without contrast that was consistent with pancolitis. PAST MEDICAL HISTORY: 1. Hypertension. 2. Myeloproliferative disorder. 3. Chronic kidney disease, stage IV. 4. History of breast cancer. PAST SURGICAL HISTORY: 1. Status post cholecystectomy. 2. Status post hysterectomy. 3. Status post mastectomy. 4. Status post partial thyroidectomy. SOCIAL HISTORY: The patient is not smoking. She does not use alcohol. She lives with her . ALLERGIES: THE PATIENT REPORTS ALLERGIES TO BACTRIM, PENICILLIN, CODEINE, AND LIDOCAINE. REVIEW OF SYSTEMS: There is no history of headache. She is not having any neck pain. She has no chest pain. She is not having difficulty breathing. She did have some abdominal pain. She had some nausea and vomiting. She has no leg edema. She has some confusion. PHYSICAL EXAMINATION: VITAL SIGNS: The patient is afebrile. The blood pressure is 127/80 and the pulse is 78. Saturation is 100%. HEENT: Shows no facial swelling or erythema. CARDIAC: Reveals a regular rate and rhythm with normal S1 and S2. There are no murmurs or rubs. LUNGS: Auscultation of lungs reveals clear breath sounds bilaterally. There is no wheezing. ABDOMEN: Soft, nontender. There is no rebound or guarding. There is some left lower quadrant tenderness. EXTREMITIES: Show no leg edema or calf tenderness. NEUROLOGICAL: Shows no focal abnormalities. LABORATORY DATA: White blood cell count is 126.5. It was 209.33 on admission. Hemoglobin is 9.5 and the platelet count is 314. The patient has 96% segs and bands. She also has 2% blasts. Bicarb is 11. BUN to creatinine ratio is 56:3.8. Albumin is 2.4. RADIOGRAPHIC DATA: A CT scan of the abdomen and pelvis shows finding consistent with infectious or inflammatory pancolitis. 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 IMPRESSION: 1. Pancolitis with severe sepsis present on admission. 2. Acute on chronic renal failure. 3. Myeloproliferative disorder with acute worsening leukemoid reaction. 4. Toxic metabolic encephalopathy. PLAN: 1. Continue antibiotics and await culture results. 2. The patient needs General Surgery consultation to rule out ischemic bowel. 3. Change IV fluids to include bicarbonate. Await further input from Renal. 4. Infectious Disease consultation. 5. Case discussed with Dr. Hartley. 6. Case discussed with nursing and family. Joshua Camara MD [facility]/MODL /[id number]
[2018-12-21] MEDS ORDERED: VANCOMYCIN 1GM/NS 250 ML 250 ML ONE (18:44)
[2018-12-21] MEDS ORDERED: PROPOFOL IV EMULSION 10MG/ML 100 ML IV PRN (18:45)
[2018-12-21 19:00] VITALS: BP 114/47
--- NOTE | 2018-12-21 19:00 | NUR ---
Bedside report received from Pablo Fagan RN. Pt sedated on propofol at 20 mcg/kg/min, IV fluid is D5W with 1 ample of bicarb at 125ml/hr, pt has ETT 7/21 cm at lip to vent settings PRVC 14, FIO2 50%, TV 450, P 5. SPO2 is 100%, RR is 14. No signs of distress noted at this time. [place] to gravity with dark yellow/bushra clear urine (approx 15cc in collection bag). Illeostomy with collection device intact, midline abdominal surgical dressing intact.
[2018-12-21] MEDS: SODIUM BICARBONATE 8.4% 50 ML in DEXTROSE 5% 1,000 ML IV SCH (19:17)
[2018-12-21 20:00] VITALS: BP 117/48
[2018-12-21 20:21] LABS: BAND NEUTROPHILS % (MANUAL) 2 %; LYMPHOCYTES % (MANUAL) 4 % (19-48); MONOCYTES % (MANUAL) 4 % (3.4-9.0); NEUTROPHILS % (MANUAL) 90 % (40-74); PLATELET ESTIMATE ADEQUATE; PLATELET MORPHOLOGY COMMENT MANY GIANT
[2018-12-21 20:22] LABS: POIKILOCYTOSIS SLIGHT; SCHISTOCYTES FEW
--- NOTE | 2018-12-21 20:29 | NUR ---
Dr. Hartley just called and was given update on pt status. Notified him that hematology just rounded and no new orders received. Notified him of pts or for PO Famotidine and that PO route is unavailable at this time, then changed order to IV Famotidine. Please refer to short order cook for further details.
[2018-12-21 20:44] LABS: ABG HCO3 11 mmol/L (23-28); ABG PCO2 30 mmHg (41-51); ABG PH 7.16 (7.31-7.41); ABG PO2 139 mmHg (80-105)
[2018-12-21] MEDS: ATORVASTATIN 10 MG TAB PO SCH (20:49)
[2018-12-21 21:00] VITALS: BP 100/53
[2018-12-21] MEDS ORDERED: FAMOTIDINE 20 MG TAB PO SCH (21:00)
--- NOTE | 2018-12-21 21:29 | Consultation ---
DATE OF CONSULTATION: 12/21/2018 HISTORY OF PRESENT ILLNESS: The patient is a 68-year-old female with history of myeloproliferative disorder, hypertension, chronic kidney disease, hypothyroidism, hyperlipidemia, who was admitted to the hospital with complaints of abdominal pain. The patient had a CT scan of the abdomen and pelvis, which revealed reveals severe colitis. She also was found to have a very elevated white blood count, which was over 200,000 on admission. She has associated nausea and vomits, have some diarrhea. She has not had any bleeding. She has a persistent acidosis, however, the bicarbonate level around 11 and elevated lactic acid, which has been persistent also. PAST MEDICAL HISTORY: As stated above with medical problems, hypertension, hypothyroidism, hyperlipidemia, chronic kidney disease, gastroesophageal reflux disease with hiatal hernia, and myeloproliferative disorder. PAST SURGICAL HISTORY: She has had previous cholecystectomy. SOCIAL HISTORY: She occasionally drinks alcohol. Does not smoke cigarettes. ALLERGIES: SHE HAS NO KNOWN ALLERGIES. FAMILY HISTORY: Noncontributory. SOCIAL HISTORY: The patient is as stated above. MEDICATIONS: Listed in the chart. REVIEW OF SYSTEMS: She has not had any fever. No chest pain. No shortness of breath. PHYSICAL EXAMINATION: GENERAL: The patient is alert, does answer questions, but seems confused at times. VITAL SIGNS: At this time are normal. She is not tachycardic. Blood pressure is 150/45. HEENT: Somewhat pale. Sclerae are not icteric. NECK: No masses. LUNGS: Equal breath sounds are clear bilaterally. CARDIAC: Regular rate and rhythm. ABDOMEN: Diffusely tender with diffuse signs of peritonitis. EXTREMITIES: Somewhat cool. No edema. NEUROLOGIC: Grossly intact. LABORATORY DATA: CT scan of the abdomen, which revealed severe diffuse colitis, mostly involving the left colon, but also malrotation. LAB TESTS: Revealed a white blood count was 209,000 on admission. White blood cell count today is 126,000, baseline is around 20,000. Chemistry significant for bicarbonate level 11 with elevated lactic acid over 50. ASSESSMENT: A 68-year-old female with severe colitis with persistent acidosis and peritonitis. At this point, I think the patient has colitis and perforation and necrosis are likely to happen soon and also the source of her sepsis is her colitis with possible leukemic infiltrate. She needs emergency surgery with probable total abdominal colectomy and this was explained to the patient and her family. Planned surgery today. Thank you for asking see Ms. Mobley. MD MEHUL Conley/ADITI /[id number]
[2018-12-21] MEDS: SODIUM CHLORIDE 0.9% 250ML IRRIG IR SCH (21:57)
[2018-12-21 22:00] VITALS: BP 107/50
--- NOTE | 2018-12-21 22:49 | Operative Report ---
DATE OF PROCEDURE: 12/21/2018 SURGEON: Abdoul Govea MD PREOPERATIVE DIAGNOSES: Sepsis, ischemic colitis. POSTOPERATIVE DIAGNOSIS: Ischemic gangrenous colitis. PROCEDURES: Exploratory laparotomy, total abdominal colectomy with ileostomy. SALES SERVICE MANAGER: None. ANESTHESIA: General endotracheal. INDICATIONS AND FINDINGS: The patient is a 68-year-old female, admitted to the hospital with complaints of severe abdominal pain with findings of acidosis. On exam revealed diffuse peritonitis. CT scan suggested severe colitis. At Surgery, the patient found gangrenous colon with karl gangrene from the mid transverse colon to the distal sigmoid and evidence of ischemia involving the right colon. The rectosigmoid junction appeared viable. Small bowel all appeared viable. TECHNIQUE: After adequate general endotracheal anesthesia, the patient is in supine position, and the abdomen was prepped and draped in a sterile fashion with ChloraPrep solution. Through midline incision, the peritoneal cavity was entered. There were adhesions involving omentum, which were lysed. There was noted that the transverse colon was frankly gangrenous. Once the adhesions were all lysed, the colon was mobilized. The left colon was mobilized by dividing the peritoneal attachments. Left ureter was identified and preserved, colon mobilized up to the splenic flexure, which was peritoneal attachments were divided. Care was taken not to injure the spleen. The omentum was dissected away from the transverse colon, this colon was frankly gangrenous over the distal half and the left colon also was frankly gangrenous, but there was no perforation. The colon mobilized all the way down to the distal sigmoid. The right colon was also mobilized by dividing peritoneal attachments. The right ureter was identified and preserved. Small bowel all appeared viable, was not dilated. The right colon also appeared ischemic, but not frankly gangrenous. The hepatic flexure colon mobilized by dividing peritoneal attachments. Once the colon was completely mobilized, a total abdominal colectomy was done. The terminal ileum was divided with a MARY stapler. The mesentery divided with LigaSure device and entire colon was freed down to the distal sigmoid and the distal colon was then divided with MARY stapler, and the colon was removed. However, the colon were divided with MARY stapler, mucosa also appeared ischemic. The sigmoid colon was mobilized further. There was some adhesions in this area and also I feel like it may be a stricture in the sigmoid colon. Colon was free all the way down to the rectosigmoid junction. The mesentery divided with LigaSure device, care was taken not to injure the ureter. The colon was divided with a MARY stapler just at the rectosigmoid junction and this portion of colon also removed. The distal stapled-off colon was marked with long sutures of 3-0 Prolene. The peritoneal cavity was irrigated with large volume of warm saline, it was inspected for hemostasis, which was seen to be adequate, it was irrigated further with saline. All fluid aspirated, inspected for hemostasis, which was seen to be adequate. Surgical skin was then removed from the right lower abdomen, carried down through subcutaneous tissue, the fascia was opened in cruciate fashion into the peritoneal cavity. the terminal ileum was then delivered up from the wound to be matured as ileostomy. The midline of the wound fascia was closed with running suture of #1 PDS. Subcutaneous tissue was irrigated with saline. Skin was closed with noe. The colon was then matured. The end of the colon opened, sutures taken from the skin to the ileostomy was then matured. The end of the small bowel was opened, the sutures taken from the skin to the full-thickness of terminal ileum with interrupted sutures of 3-0 Vicryl. The mucosa appeared viable, ileostomy appliance was applied. Sterile dressing applied to the midline wound. The patient tolerated the procedure well. Estimated blood loss was 125 mL. There were no complications. All counts were correct and the patient was taken to the recovery room in satisfactory condition. MD MEHUL Conley/MODL /[id number] cc: MD Joshua Harp MD Ronald W Killam, MD Vijay K Koka, MD
[2018-12-21 23:00] VITALS: BP 125/50
[2018-12-22] VITALS (42 sets, daily range): BP systolic 46–255; BP diastolic 38–139
[2018-12-22] MEDS: METRONIDAZOLE 500MG/NS 100ML 100 ML IV SCH ×4 (00:08→21:55)
[2018-12-22] MEDS: SODIUM BICARBONATE 8.4% 50 ML in DEXTROSE 5% 1,000 ML IV SCH (00:09)
[2018-12-22] MEDS ORDERED: SODIUM BICARBONATE 8.4% INJ 50 ML SYR IV STA ×2 (00:44→01:17)
[2018-12-22] MEDS ORDERED: SODIUM BICARBONATE 8.4% SYRING 100 ML in DEXTROSE 5% 1,000 ML IV SCH (00:45)
--- NOTE | 2018-12-22 00:50 | NUR ---
Dr. Camara notified at this time. Please refer to Critical Results / provider notification documentation as needed for further information.
[2018-12-22] MEDS ORDERED: DEXTROSE 5% 1,000 ML IV ONE (00:56)
--- NOTE | 2018-12-22 01:10 | NUR ---
Dr. Karimi notified at this time. Please refer to Provide Notification documentation for 0110 for further information.
[2018-12-22] MEDS: SODIUM BICARBONATE 8.4% SYRING 150 ML in DEXTROSE 5% 1,000 ML IV SCH ×3 (01:25→21:55)
--- NOTE | 2018-12-22 01:30 | NUR ---
Dr. Govea present and assessing the pt. Notified him of ABG results, new orders from Dr. Neil Camara and Dr. Karimi, and pts urinary output. No new orders received at this time.
[2018-12-22] MEDS: SODIUM CHLORIDE 0.9% 250ML IRRIG IR SCH ×6 (01:53→21:55)
--- NOTE | 2018-12-22 02:21 | NUR ---
Small amount of bloody drainage noted from pts midline surgical site post assessment surgeon. Dressing reinforced with gauze and tape. Addendum: 12/22/18 at 0222 by Rolanda Coats RN Amended: Links added.
--- NOTE | 2018-12-22 03:00 | NUR ---
Dr. Wendy Benton present and rounding on the pt. Updated on pt status and decreased urine output, also showed him surgical report, and notified him that hematology did see the pt today as well. No new orders received at this time.
[2018-12-22] MEDS: CEFEPIME 2 GM/NS 0.9% 100 ML 100 ML IV SCH ×2 (03:15→17:40)
[2018-12-22 06:04] LABS: MEAN CORPUSCULAR HEMOGLOBIN 27.4 pg (28-32); MEAN CORPUSCULAR HGB CONC 29.7 g/dL (31-35); MEAN CORPUSCULAR VOLUME 92.3 fL (81-99); PLATELET COUNT 364 x10e3/uL (140-360); RED BLOOD COUNT 2.48 x10e6/uL (3.6-5.1); RED CELL DISTRIBUTION WIDTH 19.9 % (11.7-14.4)
[2018-12-22 06:14] LABS: HEMOGLOBIN 6.8 g/dL (12.0-16.0)
[2018-12-22 06:15] LABS: HEMATOCRIT 22.9 % (34.2-44.1)
[2018-12-22 06:33] LABS: ALBUMIN 1.5 g/dL (3.5-5.0); ALBUMIN/GLOBULIN RATIO 0.9 (0.8-2.0); CREATININE, SERUM 4.71 mg/dL (0.57-1.11); PHOSPHORUS 8.3 MG/DL (2.3-4.7)
--- NOTE | 2018-12-22 06:35 | Diagnostic Imaging Report ---
Examination: Single AP view of the chest. COMPARISON: Single view chest 12/08/2018 INDICATION: Sepsis DISCUSSION: Endotracheal tube tip projects approximately 6 cm above the cherelle, at the level of the thoracic inlet. Enteric tube has also been placed. The tip projects off the current radiograph, inferior to the left hemidiaphragm. The lungs are well-inflated and without focal consolidation, pleural effusion, or pneumothorax. Cardiomediastinal contour and pulmonary vasculature are within normal limits. No acute osseous abnormality. IMPRESSION: Endotracheal tube tip projects approximately 6 cm above the cherelle. Advancement by 2-3 cm should be considered. Clear lungs. Signed by: Dr. Abdoul Rubin M.D. on 12/22/2018 6:31 AM
[2018-12-22 06:46] LABS: CALCIUM 6.3 mg/dL (8.4-10.2)
--- NOTE | 2018-12-22 06:52 | NUR ---
Spoke to Dr. Hartley regarding patient's low BP and critical lab values. New orders obtained.
[2018-12-22] MEDS ORDERED: SODIUM CHLORIDE 0.9% 1000ML 1,000 ML IV ONE (07:00)
[2018-12-22] MEDS ORDERED: SODIUM CHLORIDE 0.9% 250ML 250 ML IV ONE ×2 (07:00→17:30)
[2018-12-22 07:02] LABS: POTASSIUM 5.2 mmol/L (3.5-5.1)
[2018-12-22 07:11] LABS: ANION GAP 22.2 mmol/L (8-16)
[2018-12-22] MEDS ORDERED: CALCIUM GLUCONATE 10% INJ 9.3 MEQ in SODIUM CHLORIDE 0.9% 100 ML 100 ML IV ONE (08:00)
[2018-12-22 08:10] LABS: BAND NEUTROPHILS % (MANUAL) 14 %; LYMPHOCYTES % (MANUAL) 18 % (19-48); MONOCYTES % (MANUAL) 2 % (3.4-9.0); NEUTROPHILS % (MANUAL) 66 % (40-74)
[2018-12-22 08:17] LABS: ANISOCYTOSIS MODERATE; OVALOCYTES MODERATE; PLATELET MORPHOLOGY COMMENT FEW LARGE; POIKILOCYTOSIS MARKED; RBC MORPHOLOGY COMMENT ABNORMAL; SCHISTOCYTES FEW
[2018-12-22 08:18] LABS: BURR CELLS MODERATE; ELLIPTOCYTE, RBC MODERATE; PLATELET ESTIMATE SLIGHTLY INCREASED
[2018-12-22] MEDS: BISOPROLOL FUMARATE 10 MG TAB PO SCH ×2 (09:00→17:00)
[2018-12-22] MEDS: FAMOTIDINE 20 MG/2 ML VIAL IV SCH (09:00)
[2018-12-22] MEDS: HYDRALAZINE HCL 25 MG TAB PO SCH (09:00)
[2018-12-22] MEDS: CLONIDINE HCL 0.3 MG TAB PO SCH (09:00)
[2018-12-22] MEDS: NIFEDIPINE CR 30 MG TAB PO SCH (09:00)
[2018-12-22] MEDS: LEVOTHYROXINE SODIUM 100 MCG TAB PO SCH (09:00)
[2018-12-22 09:03] LABS: ABG PCO2 23 mmHg (41-51); ABG PH 7.21 (7.31-7.41); ABG PO2 159 mmHg (80-105)
[2018-12-22 09:04] LABS: ABG HCO3 9 mmol/L (23-28)
[2018-12-22 10:22] LABS: CHOL/HDL RATIO 3.8 (3.0-3.6)
[2018-12-22] MEDS ORDERED: SODIUM BICARBONATE 8.4% INJ 50 ML SYR IV ONE (10:30)
--- NOTE | 2018-12-22 11:21 | Progress Note ---
DATE: 12/22/2018 Pulmonary Critical Care Progress Note SUBJECTIVE: The patient went for laparotomy yesterday. She had a total colectomy for gangrenous colon. She returned to the ICU on a mechanical ventilator. She continues to have severe metabolic acidosis. She required additional bicarb push last night. Her bicarb concentration was increased and the rate of her drip was increased as well. She continues on mechanical ventilation. PHYSICAL EXAMINATION: VITAL SIGNS: The blood pressure is 99/44 and the pulse is 90. Saturation is 100%. She is on an AC at a rate of 18 with a tidal volume of 450, and PEEP of 5. HEENT: She has an oral endotracheal tube in place. CARDIAC: Reveals regular rate and rhythm with normal S1 and S2. There are no murmurs or rubs heard. LUNGS: Auscultation of lungs reveals clear breath sounds bilaterally. There is no wheezing. ABDOMEN: Soft, nontender. There is an ileostomy in place. The laparotomy site is bandaged. EXTREMITIES: There is no leg edema. LABORATORY DATA: Hemoglobin is 6.8, white blood cell count is 97.6. The platelet count is 364. Neutrophils are 66%. The BUN to creatinine ratio is 71 to 4.7 and the potassium is 5.2. The carbon dioxide is 10. RADIOGRAPHIC DATA: Chest x-ray shows no active disease. IMPRESSION: 1. Severe sepsis secondary to ischemic bowel. 2. Anemia secondary to acute blood loss. 3. Lymphoproliferative disorder with severe leukocytosis. 4. Inmhv-lx-lujrnrx renal failure. PLAN: 1. The patient will receive packed red blood cells today. 2. Continue bicarb drip. 3. Continue mechanical ventilation and repeat blood gas. 4. The patient may require dialysis. 5. Continue antibiotics. 6. Case discussed with General surgery, Dr. Hartley, and nursing staff. 7. Case discussed with family. Greater than 35 minutes in direct critical care time. Joshua Camara MD [facility]/ADITI /[id number]
[2018-12-22 11:46] LABS: INR 4.67
[2018-12-22 11:47] LABS: PARTIAL THROMBOPLASTIN TIME 59.8 seconds (23.8-35.5)
[2018-12-22 11:54] LABS: PROTHROMBIN TIME 44.8 seconds (11.9-14.5)
--- NOTE | 2018-12-22 12:42 | Diagnostic Imaging Report ---
EXAM: CHEST XRAY LINE PLACEMENT, AP Portable DATE: 12/22/2018 Time stamp on exam: 12:26 PM INDICATION: MATTY COMPARISON: 12/22/2018 portable chest performed at 6:19 AM FINDINGS: LINES/TUBES: Temporary right IJ hemodialysis catheter has been placed with the tip at the cavoatrial junction. Endotracheal tube with is tip at the level of the clavicles. Nasogastric tube extends below the diaphragm. LUNGS: No consolidations or edema. Minimal bibasilar subsegmental atelectasis. PLEURA: No effusions or pneumothorax. HEART AND MEDIASTINUM: Normal size and contour. BONES AND SOFT TISSUES: No acute findings. IMPRESSION: 1. No acute thoracic abnormality. 2.Temporary hemodialysis catheter in appropriate location. Signed by: Dr. Alexandre Lal DO on 12/22/2018 12:38 PM
--- NOTE | 2018-12-22 12:55 | Diagnostic Imaging Report ---
Procedure: Non tunneled temporary hemodialysis catheter placement. Indication: MATTY Medications: 1% Xylocaine Fluoroscopy time: None Contrast used: None Estimated blood loss: Minimal. Complications: No immediate. Procedure in detail: Informed consent for the procedure was obtained. The right neck was prepped and draped in the standard sterile fashion utilizing full standard sterile barrier technique 1% lidocaine was administered into the skin for local anesthesia. Then, under continuous sonographic guidance, a 21-gauge micropuncture needle was advanced into the right internal jugular vein. A 0.018 " wire was advanced centrally. The needle was then removed and access was secured with a micropuncture sheath. A 0.035 " Amplatz superstiff wire was then advanced through the micropuncture sheath. The micropuncture sheath was removed over the wire and the tract was serially dilated. Finally, a 13.5-Trinidadian 15 cm long Bard Trialysis catheter was placed over the wire. Each catheter lumen showed good bidirectional flow. The catheter was secured with 3-0 monofilament nylon suture. The patient tolerated the procedure well without immediate complication. Impression: 1. Successful placement of a non tunneled triple-lumen hemodialysis catheter by a right internal jugular approach utilizing ultrasound guidance. 2. Postprocedure chest x-ray was ordered. Signed by: Dr. Alexandre Lal DO on 12/22/2018 12:51 PM
[2018-12-22] MEDS ORDERED: SODIUM CHLORIDE 0.9% 1000ML 2,000 ML ONE (16:34)
[2018-12-22 16:42] LABS: BASOPHILS # (AUTO) 0.1 (0.0-0.1); BASOPHILS % 0.1 % (0.0-1.0); EOSINOPHILS # (AUTO) 0.2 (0.0-0.4); EOSINOPHILS % 0.5 % (0.0-6.0); LYMPHOCYTES # (AUTO) 5.5 (1.0-3.2); MEAN CORPUSCULAR HEMOGLOBIN 27.8 pg (28-32); MEAN CORPUSCULAR HGB CONC 32.4 g/dL (31-35); MEAN CORPUSCULAR VOLUME 85.6 fL (81-99); MONOCYTES # (AUTO) 1.5 (0.2-0.8); MONOCYTES % 3.9 % (4.4-11.3); NEUTROPHILS # (AUTO) 30.7 (2.1-6.9); NEUTROPHILS % 78.7 % (38.7-80.0); PLATELET COUNT 188 x10e3/uL (140-360); RED BLOOD COUNT 2.16 x10e6/uL (3.6-5.1); RED CELL DISTRIBUTION WIDTH 18.8 % (11.7-14.4)
[2018-12-22 17:08] LABS: HEMATOCRIT 18.5 % (34.2-44.1)
[2018-12-22] MEDS ORDERED: PHYTONADIONE 10 MG/ML AMP IV STA (17:30)
--- NOTE | 2018-12-22 17:31 | NUR ---
Notified Dr. Govea of ileostomy site still bleeding and that 600ml have been emptied so far this shift. Orders for 2 more units of PRBCs
[2018-12-22 17:43] LABS: INR 2.62; PROTHROMBIN TIME 28.7 seconds (11.9-14.5)
[2018-12-22] MEDS ORDERED: PHYTONADIONE 10MG/ML 10 MG in SODIUM CHLORIDE 0.9% 50ML 50 ML IV ONE (18:00)
[2018-12-22] MEDS ORDERED: ALBUMIN 25% 12.5GM 50ML 100 ML IV ONE (18:06)
[2018-12-22] MEDS ORDERED: NOREPINEPHRINE 8 MG/D5W 250 ML 250 ML ONE (18:20)
[2018-12-22] MEDS: NOREPINEPHRINE 8 MG/D5W 250 ML 250 ML IV SCH ×2 (18:20→18:45)
[2018-12-22] MEDS ORDERED: NOREPINEPHRINE INJ 4MG/4ML 8 MG in DEXTROSE 5% 250ML 242 ML IV PRN (18:45)
--- NOTE | 2018-12-22 19:00 | NUR ---
Dr. Govea rounded on patient. At this time he was aware of 650 mL output previously emptied from Ileostomy as reported by TARA Shah. During his rounding he observed another 200 mL of karl red blood in Ileostomy bag. At this time he removed the device and applied another stitch to her ileostomy site. The bag was then replaced with a new one.
--- NOTE | 2018-12-22 20:03 | NUR ---
Patient's temp unable to obtain axillary. Tympanic reading 94.1, Skin Temp 94.4. MD Govea made aware and bear hugger applied.
[2018-12-22] MEDS ORDERED: HEPARIN SOD (PORCINE) 1000 UNIT/ML SDV ONE (20:07)
[2018-12-22 20:33] LABS: BAND NEUTROPHILS % (MANUAL) 1 %; LYMPHOCYTES % (MANUAL) 7 % (19-48); MONOCYTES % (MANUAL) 1 % (3.4-9.0); NEUTROPHILS % (MANUAL) 91 % (40-74); NUCLEATED RED BLOOD CELLS 1
[2018-12-22 20:34] LABS: PLATELET ESTIMATE ADEQUATE; RBC MORPHOLOGY COMMENT ABNORMAL
[2018-12-22 20:46] LABS: PLATELET MORPHOLOGY COMMENT MANY LARGE
[2018-12-22 20:50] LABS: ANISOCYTOSIS SLIGHT; POIKILOCYTOSIS MODERATE
[2018-12-22 20:51] LABS: ELLIPTOCYTE, RBC MODERATE
[2018-12-22] MEDS: CEFEPIME 1GM/NS 0.9% 50 ML 50 ML IV SCH (21:00)
[2018-12-22] MEDS ORDERED: SODIUM CHLORIDE 0.9% 250ML 250 ML ONE (21:52)
[2018-12-22] MEDS: ATORVASTATIN 10 MG TAB PO SCH (21:55)
[2018-12-22 23:08] LABS: ABG HCO3 22 mmol/L (23-28); ABG PCO2 23 mmHg (41-51); ABG PO2 175 mmHg (80-105)
[2018-12-23] VITALS (46 sets, daily range): BP systolic 72–179; BP diastolic 41–90
[2018-12-23] MEDS: SODIUM CHLORIDE 0.9% 250ML IRRIG IR SCH ×5 (01:50→18:00)
--- NOTE | 2018-12-23 03:00 | NUR ---
Dr. Wendy Benton rounding on patient and observed Ileostomy site with 275 mL dark red blood output. Patient has blood infusing at this time. Labs will be repeated 2 hrs after infusion complete.
--- NOTE | 2018-12-23 05:37 | Diagnostic Imaging Report ---
Examination: Single AP view of the chest. COMPARISON: 12/22/2018 INDICATION: Intubated DISCUSSION: Endotracheal tube, enteric tube, and right internal jugular approach high flow central venous catheter are unchanged in position. The lungs remain well-inflated with slight interval worsening in patchy retrocardiac opacity relative to 12/22/2018. The right lung remains clear. Mediastinal contour and pulmonary vasculature are within normal limits. IMPRESSION: Stable position of support lines and tubes. Slight interval worsening retrocardiac atelectasis. No new consolidations. Signed by: Dr. Abdoul Rubin M.D. on 12/23/2018 5:34 AM
[2018-12-23] MEDS: METRONIDAZOLE 500MG/NS 100ML 100 ML IV SCH ×2 (06:30→15:31)
[2018-12-23 07:07] LABS: ABG HCO3 24 mmol/L (23-28); ABG PCO2 31 mmHg (41-51); ABG PH 7.49 (7.31-7.41); ABG PO2 198 mmHg (80-105)
[2018-12-23 07:52] LABS: HEMOGLOBIN 7.5 g/dL (12.0-16.0); MEAN CORPUSCULAR HEMOGLOBIN 28.6 pg (28-32); MEAN CORPUSCULAR HGB CONC 34.4 g/dL (31-35); MEAN CORPUSCULAR VOLUME 83.2 fL (81-99); PLATELET COUNT 225 x10e3/uL (140-360); RED BLOOD COUNT 2.62 x10e6/uL (3.6-5.1)
[2018-12-23 07:57] LABS: HEMATOCRIT 21.8 % (34.2-44.1)
[2018-12-23 07:57] LABS: ALBUMIN 1.9 g/dL (3.5-5.0); ALBUMIN/GLOBULIN RATIO 1.6 (0.8-2.0); ANION GAP 22.5 mmol/L (8-16); CREATININE, SERUM 3.14 mg/dL (0.57-1.11); POTASSIUM 4.5 mmol/L (3.5-5.1)
[2018-12-23 08:12] LABS: CALCIUM 6.1 mg/dL (8.4-10.2)
[2018-12-23 08:41] LABS: BAND NEUTROPHILS % (MANUAL) 14 %; LYMPHOCYTES % (MANUAL) 5 % (19-48); MONOCYTES % (MANUAL) 1 % (3.4-9.0); NEUTROPHILS % (MANUAL) 80 % (40-74)
[2018-12-23 08:42] LABS: ANISOCYTOSIS SLIGHT; PLATELET ESTIMATE ADEQUATE; PLATELET MORPHOLOGY COMMENT FEW LARGE; POIKILOCYTOSIS SLIGHT; RBC MORPHOLOGY COMMENT ABNORMAL
[2018-12-23] MEDS: BISOPROLOL FUMARATE 10 MG TAB PO SCH ×2 (09:00→15:27)
[2018-12-23] MEDS: FAMOTIDINE 20 MG/2 ML VIAL IV SCH (10:00)
[2018-12-23] MEDS: LEVOTHYROXINE SODIUM 100 MCG TAB PO SCH (10:00)
--- NOTE | 2018-12-23 10:06 | Progress Note ---
DATE: 12/23/2018 SUBJECTIVE: The patient had dialysis yesterday. She was started on some low-dose Levophed. This morning, she is less responsive despite not receiving sedation for the past 12 hours. PHYSICAL EXAMINATION: VITAL SIGNS: The patient is afebrile. The blood pressure is 128/73 and the saturation is 96%. HEENT: Shows no facial swelling or erythema. LYMPHATIC: Shows no submandibular, cervical, or supraclavicular adenopathy. CARDIAC: Reveals a regular rate and rhythm with a normal S1, S2. There are no murmurs or rubs. LUNGS: Auscultation of lungs shows clear breath sounds bilaterally. There is no wheezing. ABDOMEN: Soft, nontender. There is no rebound or guarding. EXTREMITIES: Show no leg edema or calf tenderness. There is no cyanosis or clubbing. SKIN: Shows no rashes. NEUROLOGICAL: Shows no focal abnormalities. IMPRESSION: 1. Severe sepsis secondary to ischemic colon. 2. Metabolic encephalopathy. 3. Anemia secondary to chronic and acute blood loss. 4. Lymphoproliferative disorder with severe leukocytosis. 5. Icqhd-pb-rmnzpqv renal failure. PLAN: 1. The patient will have a CT scan of the head. 2. Wean ventilator as tolerated. 3. Continue antibiotics. 4. DVT prophylaxis. 5. Case discussed with Nursing and family. 6. Greater than 35 minutes in direct critical care time. Joshua Camara MD [facility]/MODL /[id number]
--- NOTE | 2018-12-23 11:02 | Progress Note ---
DATE: 12/23/2018 SUBJECTIVE: Seen on Nephrology followup, had dialysis x1. She remains oliguric on low-dose pressors. Chest x-ray is not showing that much fluid overload. Labs show white count of 126,000, possibly leukemia reaction. She has a history of underlying polycythemia vera. Hemoglobin of 9.5, platelets of 314. pH is now up to 7.49, pCO2 of 31, PO2 of 98. K is 4.5, serum CO2 20, creatinine 3.14, BUN 37. On antibiotics status post colon resection for ischemic and gangrenous colitis with ileostomy placement. There was some bleeding that is now improved. OBJECTIVE: GENERAL: On examination, lying in ICU bed, remains intubated. Pressors are running. VITAL SIGNS: Temperature 97.6, pulse 96, blood pressure is 128/73. Alfredo Hugger has been turned off. CHEST: Clear anteriorly. EXTREMITIES: Trace edema. NEURO: Sedate appearing. HEENT: Orally intubated. : [place] in place. LABORATORY DATA: Labs noted above. Calcium was quite low at 6.1, albumin is only 1.9. AST and ALT had elevated, consistent with shock liver. Lactic acid level is high. ASSESSMENT: 1. Acute tubular necrosis, underlying chronic kidney disease, stage 4. 2. Nephrosclerosis. 3. Metabolic acidosis, now with a pH of 7.49. 4. Presumed shock liver. 5. Status post colectomy for ischemic colitis. PLAN: Appears quite ill. At this time, she has been dialyzed. In terms of blood chemistry, they are reasonable. The pH is well compensated. Volume status is reasonable. Watch for fluid overload as her output is borderline. Stop the bicarb drip. Plan dialysis again tomorrow depending on renal response. Monitor for recovery, although the chances are decreased. Recheck chemistries tomorrow. Thank you for allowing us to participate in Ms. Mobley's care. MD HUMBERTO NicoleK/MODL /[id number]
--- NOTE | 2018-12-23 11:43 | Diagnostic Imaging Report ---
History: Unresponsiveness Comparison studies: None Technique: Axial images were obtained from the skull base to the vertex. Coronal and sagittal reconstructions obtained from the axial data. Dose modulation, iterative reconstruction, and/or weight based adjustment of the mA/kV was utilized to reduce the radiation dose to as low as reasonably achievable. Findings: Scalp/skull: No abnormalities. No fractures, blastic or lytic lesions. Extra-axial spaces: No masses. No fluid collections. Brain sulci: Completely effaced. Ventricles: Mildly collapsed lateral ventricles, effaces third and fourth ventricles. No hydrocephalus. Parenchyma: Diffuse loss of monroe-white matter differentiation throughout the cerebral and cerebellar brain parenchyma with obliterated cisterns, crowding of the posterior fossa and tonsillar herniation. No masses or hemorrhage. Sellar/suprasellar region: No abnormalities Craniocervical junction: The cerebellar tonsils are 9 mm below the foramen magnum with crowding of the craniocervical junction. IMPRESSION: Diffuse cerebral and cerebellar edema with tonsillar herniation, concerning for diffuse hypoxic injury with infarction . The above was reported and acknowledged by TARA Garcia at 11:56 AM on 12/23/2018 Signed by: DR Aftab Sanchez M.D. on 12/23/2018 11:39 AM
[2018-12-23 12:06] LABS: INR 3.68; PARTIAL THROMBOPLASTIN TIME 46.6 seconds (23.8-35.5); PROTHROMBIN TIME 37.3 seconds (11.9-14.5)
[2018-12-23 12:20] LABS: ABG HCO3 23 mmol/L (23-28); ABG PCO2 34 mmHg (41-51); ABG PH 7.44 (7.31-7.41); ABG PO2 167 mmHg (80-105)
[2018-12-23] MEDS: CEFEPIME 1GM/NS 0.9% 50 ML 50 ML IV SCH (15:31)
[2018-12-23] MEDS ORDERED: MORPHINE SULFATE 2 MG/ML SYR 1ML IV PRN (16:45)
--- NOTE | 2018-12-23 17:00 | NUR ---
DR STAPLES ORDER EXTUBATED PT,PLACED PT ON NC 3L.
--- NOTE | 2018-12-23 17:27 | Consultation ---
DATE OF CONSULTATION: 12/23/2018 REASON FOR CONSULTATION: Sepsis, ischemic colitis, gangrene colitis. HISTORY OF PRESENT ILLNESS: This patient who is a 68-year-old was admitted on December 21 with altered mental status, sepsis, and abdominal pain. The patient does have history of hypertension, myeloproliferative disorder, chronic kidney disease stage 4, history of breast cancer, history of cholecystectomy, hysterectomy, mastectomy, thyroidectomy. The patient was recently in the hospital with confusion, nausea, vomiting. She was diagnosed with UTI and given antibiotic for which was here for a few days, discharged home, came back with altered mental status and severe diarrhea. The patient had a CAT scan, which showed that she has acute abdomen. She was taken to surgery. I discussed the case with Dr. Govea. The patient had ischemic gangrenous colitis, underwent exploratory laparotomy, total abdominal colectomy, and ileostomy on December 21. I was asked to see her on December 22 to make recommendation in terms of antibiotic. At that time, the patient has also had an acute renal failure, this admission she received vancomycin, cefepime, and Flagyl. The patient was seen and examined. She is currently in the intensive care unit, noncommunicative. LABORATORY DATA: Reviewed. Her white count on admission was 126, came down to 97. Her blood cultures were negative. Her sodium 137, potassium of 4.5. Creatinine was elevated. PHYSICAL EXAMINATION: GENERAL: She is noncommunicative. VITAL SIGNS: Stable currently. HEENT: Normocephalic. NECK: Supple. CHEST: Few crackles at the bases. COR: S1 and S2. ABDOMEN: Soft. Hypoactive. EXTREMITIES: No edema. SKIN: No rash. IMPRESSION: Sepsis present on admission and gangrenous colitis. Discussed with Dr. Govea. I reviewed with him the finding. Acute renal failure. The patient is going for dialysis, history of chronic kidney disease, history of hypertension, history of myeloproliferative disorder. From Infectious Disease point of view, we will adjust antibiotic to cefepime 1 g daily. Hold off to vancomycin. Await cultures. Continue Flagyl. Recheck CBC. Await blood culture. Discussed with family prognosis is extremely guarded. Discussed with family about sepsis and septic shock, etc. Discussed with surgery. We will reassess the patient closely. Discussed with nursing team. TIME SPENT: 60 minutes. MD ELY Arias/ADITI /[id number]
--- NOTE | 2018-12-23 18:13 | NUR ---
PATIENT FAMILY WISHES TO WITHDRAW [employer] AFTER DISCUSSING PROGNOSIS WITH DR JAEGER (NEUROLOGY). NOTIFIED AD NANCE AND SHE STATED THAT SHE WILL NOTIFY DR OROZCO. HAD PATIENT'S SPOUSE SIGN APPROPRIATE DNAR FORMS WITH APPROPRIATE WITNESSES. INFORMED ME THAT ALL FAMILY WAS HERE AND THEY "ARE READY TO PULL OFF EVERYTHING". SPOKE WITH DR. Neil DODD AND EXTUBATION ORDERED PER FAMILY REQUEST. PRESSORS AND VENTILATOR DISCONTINUED. PATIENT TOD [address] WEBSTER ( MD). NOTIIFED DR JEFFERY AND DR BUCKLEY.
--- NOTE | 2018-12-23 19:00 | NUR ---
Received report from offgoing nurse. MDs aware of patient status. [employer], [employer] released patient and home contacted. No family present at this time.
--- NOTE | 2018-12-23 19:08 | NUR ---
1720 NOTIFIED [employer] AAND SPOKE WITH KAYLEY LOERA. CASE# [id number]. 1900 NOTIFIED [employer]OL PROGRAMMER AND SPOKE WITH GISELA VALENCIA. CASE RELEASED # [id number] 1902 SPOKE WITH [facility]. ETA 1.5 HRS
--- NOTE | 2018-12-23 20:42 | NUR ---
Rn Wound from [facility] home transported Patient off the unit. Family was not at bedside at this time, security present to escort. Per off-going nurse all appropriate parties notified of patient status.
== END 2018-12-23 20:42 | disposition expired | DRG 853 ==
LOC: ER 17:09 → ERHOLD 12-21 03:30 → ICU 12-21 14:12
PROVIDERS: ADMIT Internal Medicine; ATTEND Internal Medicine
PROC: 0D1B0Z4 Bypass Ileum to Cutaneous, Open Approach (ICD-10-PCS; 2018-12-21)
PROC: 0DTE0ZZ Resection of Large Intestine, Open Approach (ICD-10-PCS; 2018-12-21)
PROC: 0BH18EZ Insertion of Endotracheal Airway into Trachea, Via Natural or Artificial Opening Endoscopic (ICD-10-PCS; 2018-12-21)
PROC: 5A1945Z Respiratory Ventilation, 24-96 Consecutive Hours (ICD-10-PCS; principal; 2018-12-21 16:50)
PROC: 30233L1 Transfusion of Nonautologous Fresh Plasma into Peripheral Vein, Percutaneous Approach (ICD-10-PCS; 2018-12-22)
PROC: 30233N1 Transfusion of Nonautologous Red Blood Cells into Peripheral Vein, Percutaneous Approach (ICD-10-PCS; 2018-12-22)
PROC: 30233K1 Transfusion of Nonautologous Frozen Plasma into Peripheral Vein, Percutaneous Approach (ICD-10-PCS; 2018-12-22)
PROC: 5A1D70Z Performance of Urinary Filtration, Intermittent, Less than 6 Hours Per Day (ICD-10-PCS; 2018-12-22)
PROC: 02HV33Z Insertion of Infusion Device into Superior Vena Cava, Percutaneous Approach (ICD-10-PCS; 2018-12-22)
PROC: B548ZZA Ultrasonography of Superior Vena Cava, Guidance (ICD-10-PCS; 2018-12-22)
DX: A41.9 Sepsis, unspecified organism (principal); R65.21 Severe sepsis with septic shock; N17.0 Acute kidney failure with tubular necrosis; K72.00 Acute and subacute hepatic failure without coma; G93.41 Metabolic encephalopathy; K55.039 Acute (reversible) ischemia of large intestine, extent unspecified; J96.00 Acute respiratory failure, unspecified whether with hypoxia or hypercapnia; G93.5 Compression of brain; K55.049 Acute infarction of large intestine, extent unspecified; E87.2 Acidosis; N18.4 Chronic kidney disease, stage 4 (severe); D62 Acute posthemorrhagic anemia; Q43.3 Congenital malformations of intestinal fixation; G93.1 Anoxic brain damage, not elsewhere classified; I12.9 Hypertensive chronic kidney disease with stage 1 through stage 4 chronic kidney disease, or unspecified chronic kidney disease; E03.9 Hypothyroidism, unspecified; E78.5 Hyperlipidemia, unspecified; K21.9 Gastro-esophageal reflux disease without esophagitis; K44.9 Diaphragmatic hernia without obstruction or gangrene; Z85.6 Personal history of leukemia; K22.2 Esophageal obstruction; Z90.49 Acquired absence of other specified parts of digestive tract; Z85.3 Personal history of malignant neoplasm of breast; Z88.1 Allergy status to other antibiotic agents; Z88.5 Allergy status to narcotic agent; Z88.0 Allergy status to penicillin; E83.51 Hypocalcemia; E87.5 Hyperkalemia; Z66 Do not resuscitate
CPT/HCPCS: 36415; 36556; 36600; 51700; 70450; 71045; 74176; 74470; 76937; 80048; 80053; 80061; 81001; 82150; 82550; 82553; 82805; 83605; 83690; 83880; 84100; 84484; 85007; 85025; 85027; 85379; 85384; 85610; 85730; 86850; 86900; 86920; 87040; 87045; 87177; 87340; 87493; 88307; 90962; 93005; 93306; 94002; 99285; C1769; J0610; J0692; J1100; J1644; J1650; J2001; J2250; J2270; J2370; J2405; J3010; J3370; J3430; J7030; J7050; J7070; P9016; P9017